=== PATIENT | male | born 1955 | race Caucasian/White ===

== ENCOUNTER → 2021-10-06 10:06 | Outpatient (BNVA) | payer MEDICARE, SELFPAY | PROVIDERS: PCP Family Medicine; Visit Provider Family Medicine | DX: I10 Essential (primary) hypertension (principal); Z13.220 Encounter for screening for lipoid disorders; Z13.6 Encounter for screening for cardiovascular disorders | CPT/HCPCS: 80053; 80061 ==

== ENCOUNTER 2021-10-12 17:55 | Observation (INO) | payer MEDICARE, SELFPAY ==
--- NOTE | 2021-10-12 18:05 | ECG_ITS ---
Test Date: 2021-10-12 Pat Name: Gautam Mcneil Department: Room: Gender: Male Family Caseworker: : 1955 Requested By: Chepe Fuentes Order Number: [id number] Karol MD: Avril Luna M.D. Measurements Intervals [place] Rate: 73 P: 42 IN: 184 QRS: 63 QRSD: 104 T: 78 QT: 441 QTc: 487 Interpretive Statements SINUS RHYTHM WITH OCCASIONAL SUPRAVENTRICULAR PREMATURE COMPLEXES MODERATE T-WAVE ABNORMALITY, CONSIDER ANTERIOR ISCHEMIA No previous ECG available for comparison Electronically Signed On 10-13-2021 18:59:17 CDT by Avril Luna M.D. [id number]
[2021-10-12 18:08] VITALS: BP 164/77; PULSE 75; RESP 16; TEMP 36.8; O2SAT 95; BMI 48.2
--- NOTE | 2021-10-12 18:48 | XRR_ITS ---
PROCEDURE INFORMATION: Exam: XR Chest Exam date and time: 10/12/2021 7:13 PM Age: 66 years old Clinical indication: Chest wall pain; Prior surgery; Surgery date: 6+ months; Additional info: Chest pain TECHNIQUE: Imaging protocol: Radiologic exam of the chest. Views: 1 view. COMPARISON: No relevant prior studies available. FINDINGS: Lungs: Unremarkable. No consolidation. Pleural spaces: Unremarkable. No pleural effusion. No pneumothorax. Heart/Mediastinum: Unremarkable. No cardiomegaly. Bones/joints: Sternotomy changes with a fractured wires. XR/XR chest 1V portable [id number] IMPRESSION: No acute finding.
--- NOTE | 2021-10-12 19:07 | ED_ITS ---
HPI - Chest Pain General: Chief Complaint: Chest Pain Stated Complaint: Chest Pain, Weakness Time Seen by Provider: 10/12/21 18:49 History of Present Illness: Mr. Mcneil is a 66-year-old gentleman with history of CABG x3, obesity, hypertension who presents to the emergency department due to generalized symptoms of chest pain. Reports started yesterday feeling generalized malaise and fatigue. Starting this morning he noticed some pressure in the middle of his chest which has essentially remained constant though varies in intensity since onset. This feels like a dull nagging pain. Mild associated shortness of breath but no other typical cardiac features. Denies frequent his tory of chest pain. Did take a home COVID test which was negative. No other specific changes in health, exacerbating, or alleviating factors identified. Onset (ago): day(s) Timing of current episode: constant Prior episodes: No Onset: during rest Pain location: substernal Pain radiation: none Severity: moderate Quality: aching and dull Relieving factors: nothing Exacerbating factors: nothing Associated symptoms: Reports dyspnea and other (generalized malaise) Review of Systems General: Reports: 10 or more systems reviewed and unremarkable except in HPI and below Resp: Reports: dyspnea PFSH ED PFSH: Medical History (Updated 10/26/21 @ 12:45 by Kaur Bay MD) CAD (coronary artery disease) of bypass graft S/P MS, stenting and bypass Chest pain COPD (chronic obstructive pulmonary disease) CVA (cerebral vascular accident) GERD (gastroesophageal reflux disease) History of stroke Hypertension Surgical History (Updated 10/26/21 @ 12:45 by Kaur Bay MD) History of hernia repair History of right knee surgery 1977 Hx of CABG 2014 Family History Father Cancer Mother Dementia Diabetes Social History Smoking and tobacco status: former smoker (quit smoking 2008) Physical Exam Const: COMMON NORMALS: alert GENERAL APPEARANCE: cooperative and well developed NUTRITIONAL APPEARANCE: obese HENMT: COMMON NORMALS: normocephalic and atraumatic HEAD & SCALP: normocephalic and atraumatic Eye: COMMON NORMALS: conjunctivae normal CONJUNCTIVA: Yes conjunctivae normal SCLERA: sclerae normal Neck/C-Spine: COMMON NORMALS: supple GENERAL: Yes trachea midline Resp: COMMON NORMALS: normal respiratory effort and clear to auscultation bilaterally EFFORT & INSPECTION: Yes able to speak in complete sentences AUSCULTATION: clear to auscultation bilaterally Cardio: COMMON NORMALS: regular rate and regular rhythm RATE: regular rate RHYTHM: regular rhythm GI: COMMON NORMALS: Soft to palpation PALPATION: Yes Soft to palpation and No Tenderness to palpation present (GI) Extremity: GENERAL: Yes normal exam except as noted and No edema Neuro: COMMON NORMALS: moves all extremities SENSORIUM/ORIENTATION: Yes alert and No Orientation impaired Psych: COMMON NORMALS: mental status grossly normal and Normal thought process present THOUGHT PROCESS: Normal thought process present Course ED course: - Patient was seen and evaluated by me at bedside - Patient placed on cardiac monitors, IV access obtained - Initial evaluation notable for somewhat ill appearance, exam as above - Labs and xrays personally interpreted by me. EKG shows sinus rhythm with arrhythmia and nonspecific ST segment abnormalities, no STEMI. -Aspirin, analgesia, GI cocktail given - Labs notable for leukocytosis, normal hemoglobin. Metabolic panel with perhaps mild evidence of dehydration. Delta troponin is negative. Viral studies negative. Urinalysis not concerning for urinary tract infection. - Imaging notable for no lobar consolidation or pneumothorax. - Upon serial reexamination after treatment the patient was not significantly improved - Based on patient history, evaluation, and testing as interpreted the most likely cause of the patient's condition is uncertain generalized symptoms and chest pain in a patient who is not low risk by heart score. - The results of ED evaluation were discussed with the patient including plan for admission due to requirement for level of care not available if discharged to prevent significant worsening/deterioration. - Admitting service was contacted and Dr Flores with the hospitalist service agreed to admit the patient - Patient was admitted without further deterioration or significant events. Note: Click bubbles or prepopulated stokes in note writing are used for assistance with data collection and billing and are inherently more limited than narrative and other text portions of this note. Please use narrative for additional clinical history and defer to narrative/free test for any case of contradictory information. If information appears in only free text or click bubble it should be considered present or absent as reported. Please contact note securities underwriter for clarifications of clinical information or contradictory information. MDM is a brief summary, contradictory or erroneous seeming information should be clarified and full note should be reviewed. Vital Signs: Vital signs: Vital Signs Temperature 97.8 F 10/13/21 15:52 Pulse Rate 85 10/13/21 15:52 Respiratory Rate 16 10/13/21 15:52 Blood Pressure 153/77 10/13/21 15:52 Pulse Oximetry 94 10/13/21 15:52 Oxygen Delivery Me thod 10/13/21 11:52 MDM - Chest Pain Medical Decision Making 66-year-old gentleman with significant cardiac history presenting with chest pain and generalized symptoms. Does not frequently get chest pain. No clear etiology of symptoms identified on ED evaluation. Admitted for further management given not low risk by heart score. Medical Records I reviewed the patient's medical records. Lab Data I reviewed the patient's lab results. : 10/13/21 01:16 10/13/21 01:16 Radiology Impressions Chest X-Ray 10/12/21 18:48 IMPRESSION: No acute finding. Head CT 10/12/21 23:36 IMPRESSION: No acute intracranial hemorrhage, mass effect, or midline shift. Laboratory Results WBC 13.9 10^3/uL (4.0-10.0) H 10/12/21 19:46 RBC 5.43 10^6/uL (4.1-5.3) H 10/12/21 19:46 Hgb 15.2 g/dL (11.7-16.6) 10/12/21 19:46 Hct 47.6 % (42.0-52.0) 10/12/21 19:46 MCV 87.7 fl (80-94) 10/12/21 19:46 MCH 28.0 pg (28.0-34.0) 10/12/21 19:46 MCHC 31.9 g/dL (30.0-36.0) 10/12/21 19:46 RDW 14.4 % (12.1-15.1) 10/12/21 19:46 Plt Count 285 10^3/cmm (130-400) 10/12/21 19:46 MPV 11.7 fL (7.4-10.4) H 10/12/21 19:46 Neut % (Auto) 61.5 % 10/12/21 19:46 Lymph % (Auto) 26.6 % 10/12/21 19:46 [place] % (Auto) 8.4 % 10/12/21 19:46 Eos % (Auto) 2.1 % 10/12/21 19:46 Baso % (Auto) 1.0 % 10/12/21 19:46 Neut # (Auto) 8.58 10^3/uL (1.8-7.7) H 10/12/21 19:46 Lymph # (Auto) 3.7 10^3/uL (0.8-4.8) 10/12/21 19:46 [place] # (Auto) 1.2 10^3/uL (0.2-0.9) H 10/12/21 19:46 Eos # (Auto) 0.3 10^3/uL (0.0-0.8) 10/12/21 19:46 Baso # (Auto) 0.1 10^3/uL (0.0-0.1) 10/12/21 19:46 Nucleated RBC % (auto) 0 % 10/12/21 19:46 Nucleated RBCs # 0.0 /100WBC 10/12/21 19:46 Sodium 134 mmol/L (136-145) L 10/12/21 19:46 Potassium 4.4 mmol/L (3.5-5.1) 10/12/21 19:46 Chloride 99 mmol/L (98-107) 10/12/21 19:46 Carbon Dioxide 25 mmol/L (22-29) 10/12/21 19:46 Anion Gap 14.4 (5-19) 10/12/21 19:46 BUN 11 mg/dL (8-23) 10/12/21 19:46 Creatinine 0.8 mg/dL (0.7-1.2) 10/12/21 19:46 GFR Calculation 96.7 mL/min (90-130) 10/12/21 19:46 Glucose 117 mg/dL (65-115) H 10/12/21 19:46 Calculated Osmolality 278 mOsm/kg (285-295) L 10/12/21 19:46 Calcium 9.1 mg/dL (8.5-10.5) 10/12/21 19:46 Total Bilirubin 0.3 mg/dL (0.15-1.2) 10/12/21 19:46 AST 21 U/L (0-40) 10/12/21 19:46 ALT 22 U/L (0-41) 10/12/21 19:46 Alkaline Phosphatase 75 IU/L (40-130) 10/12/21 19:46 Troponin T Baseline 6 ng/L (0-15) 10/12/21 19:46 Troponin T 120 Minute 6.00 ng/L (0-15) 10/12/21 21:59 Delta Troponin T 0 ABS# (0-10) 10/12/21 21:59 NT-Pro-B Natriuret Pep 35 pg/mL (0-125) 10/12/21 19:46 Total Protein 7.6 g/dL (6.6-8.7) 10/12/21 19:46 Albumin 4.2 g/dL (3.5-5.2) 10/12/21 19:46 Globulin 3.4 g/dL (1.3-4.6) 10/12/21 19:46 Lipase 21 U/L (13-60) 10/12/21 19:46 Urine Color Yellow (Yellow) 10/12/21 21:15 Urine Appearance Clear (CLEAR) 10/12/21 21:15 Urine pH 6 (5-7) 10/12/21 21:15 Ur Specific [place] 1.015 (1.005-1.030) 10/12/21 21:15 Urine Protein Neg (Negative) 10/12/21 21:15 Urine Glucose (UA) Norm (Normal) 10/12/21 21:15 Urine Ketones Negative (Negative) 10/12/21 21:15 Urine Blood Neg (Negative) 10/12/21 21:15 Urine Nitrate Negative (Negative) 10/12/21 21:15 Urine Bilirubin Neg (Negative) 10/12/21 21:15 Urine Urobilinogen Norm mg/dL (Negative) 10/12/21 21:15 Ur Leukocyte Esterase Negative (Negative) 10/12/21 21:15 Influenza Type A Ag Negative (Negative) 10/12/21 22:00 Influenza Type B Ag Negative (Negative) 10/12/21 22:00 SARS-CoV-2 Ag (Rapid) Negative (Negative) 10/12/21 22:00 Discharge Plan Discharge Patient Disposition: Placed in Observation Admit Provider: Brandon Flores Clinical Impression: Chest pain Discharge Diet: Cardiac Discharge Activity: Increase activity as tolerated Coding Level of Care Code ED Bookstore Manager for Chg Fwd Exam Comprehensive
[2021-10-12 19:44] VITALS: RESP 19
[2021-10-12] MEDS: morphine 4 mg/mL SDV 1 mL IVP ×2 (19:44→22:21)
[2021-10-12] MEDS: aspirin 81 mg Chew Tablet 324 MG PO (19:45)
[2021-10-12 19:52] LABS: Basophils # 0.1 10^3/uL (0.0-0.1); Eosinophils # 0.3 10^3/uL (0.0-0.8); Eosinophils % 2.1 %; Hematocrit 47.6 % (42.0-52.0); Hemoglobin 15.2 g/dL (11.7-16.6); Lymphocytes # 3.7 10^3/uL (0.8-4.8); Lymphocytes % 26.6 %; Mean Corpuscular HGB Conc 31.9 g/dL (30.0-36.0); Mean Corpuscular Volume 87.7 fl (80-94); Mean Platelet Volume 11.7 fL (7.4-10.4); Monocytes # 1.2 10^3/uL (0.2-0.9); Monocytes % 8.4 %; Neutrophils # 8.58 10^3/uL (1.8-7.7); Neutrophils % 61.5 %; Nucleated Red Blood Cells % 0 %; Platelet Count 285 10^3/cmm (130-400); Red Blood Count 5.43 10^6/uL (4.1-5.3); Red Cell Distribution Width 14.4 % (12.1-15.1); White Blood Count 13.9 10^3/uL (4.0-10.0)
[2021-10-12 20:18] LABS: Troponin(5th) Baseline 6 ng/L (0-15)
[2021-10-12] MEDS: methocarbamol 750 mg Tablet PO (20:22)
--- NOTE | 2021-10-12 20:23 | ECG_ITS ---
[facility] Test Date: 2021-10-12 Pat Name: Gautam Mcneil Department: Room: Gender: Male Cribber: : 1955 Requested By: Chepe Fuentes Order Number: [id number] Karol MD: Avril Luna M.D. Measurements Intervals [place] Rate: 67 P: 78 OR: 186 QRS: 67 QRSD: 112 T: 81 QT: 412 QTc: 435 Interpretive Statements SINUS RHYTHM WITH MARKED SINUS ARRHYTHMIA MODERATE INTRAVENTRICULAR CONDUCTION DELAY [110+ ms QRS DURATION] MODERATE T-WAVE ABNORMALITY, CONSIDER ANTERIOR ISCHEMIA [-0.1+ mV T-WAVE IN V3/V4] Compared to ECG 10/12/2021 18:05:22 Intraventricular conduction delay now present T-wave abnormality still present Possible ischemia still present Electronically Signed On 10-13-2021 18:42:32 CDT by Avril Luna M.D. [email or web address] [email or web address]/store/OM/[id number]
[2021-10-12 20:27] LABS: Alanine Aminotransferase 22 U/L (0-41); Albumin Level 4.2 g/dL (3.5-5.2); Alkaline Phosphatase 75 IU/L (40-130); Anion Gap 14.4 (5-19); Aspartate Amino Transferase 21 U/L (0-40); Blood Urea Nitrogen 11 mg/dL (8-23); Calcium 9.1 mg/dL (8.5-10.5); Carbon Dioxide 25 mmol/L (22-29); Chloride 99 mmol/L (98-107); Globulin 3.4 g/dL (1.3-4.6); Glomerular Filtration Rate 96.7 mL/min (90-130); Glucose 117 mg/dL (65-115); Lipase 21 U/L (13-60); NT Pro B Type Natriuretic Pept 35 pg/mL (0-125); Osmolality Calculated 278 mOsm/kg (285-295); Potassium 4.4 mmol/L (3.5-5.1); Sodium 134 mmol/L (136-145); Total Bilirubin 0.3 mg/dL (0.15-1.2); Total Protein 7.6 g/dL (6.6-8.7)
[2021-10-12 21:24] LABS: Add Urine Microscopic? NO; Charge for UA Resulting for Rev
[2021-10-12 21:29] LABS: Bilirubin Urine Neg (Negative); Blood Urine Neg (Negative); Glucose Urine UA Norm (Normal); Ketones Urine Negative (Negative); Leukocyte Esterase Urine Negative (Negative); Nitrate Urine Negative (Negative); Protein Urine Neg (Negative); Specific Gravity, Urine 1.015 (1.005-1.030); Urine Appearance Clear (CLEAR); Urine Color Yellow (Yellow); Urobilinogen Urine Norm (Negative); pH Urine 6 (5-7)
[2021-10-12 22:21] VITALS: RESP 20
[2021-10-12] MEDS: lidocaine 2% viscous 15 ML, aluminum-mag hydrox-simethicon 30 ML, sucralfate oral liq 1 GM PO (22:22)
[2021-10-12 22:44] LABS: Influenza A by IFA Negative (Negative); Influenza B by IFA Negative (Negative)
[2021-10-12 22:45] LABS: SARS Covid-2 Antigen Negative (Negative)
[2021-10-12 23:32] LABS: Troponin 5 2HR Delta 0 ABS# (0-10)
--- NOTE | 2021-10-12 23:35 | P.HP_ITS ---
Providers/Chief Complaint Primary Care Provider: Kaur Bay MD Chief Complaint: Chest Pain, Weakness History of Present Illness Gautam Mcneil is a 66 year old male with a past history of CAD status post stenting, history of CABG, hypertension, hyperlipidemia, history of CVA, who presents [facility] for chest pain. Patient tells me that today he started develop substernal chest pain, in the center of her chest, nonradiating, he also has been feeling weak, fatigue, no nausea, no vomiting, no diaphoresis. 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 Review of Systems Const: Reports: fatigue and malaise; Denies: fever(s) or chills Eyes: Denies: change in vision Resp: Denies: dyspnea, productive cough, non-productive cough or wheezing GI: Denies: abdominal pain, nausea or vomiting : Denies: dysuria Musc: Denies: back pain Neuro: Denies: headache(s), dizziness or vertigo Endo: Denies: polyuria or polydipsia Medications/Allergies Home Medications Medication Instructions Recorded Confirmed Last Taken Type albuterol sulfate 90 mcg/actuation 2 puff inhalation Q6H PRN 10/06/21 10/06/21 Unknown History aerosol inhaler (Ventolin HFA) aspirin 81 mg tablet,delayed 81 mg PO DAILY 10/06/21 10/06/21 Unknown History release (Adult Aspirin Regimen) fluconazole 150 mg tablet 150 mg PO Q3D 2 doses #2 tabs 10/06/21 10/06/21 Unknown Rx furosemide 20 mg tablet 20 mg PO DAILY 10/06/21 10/06/21 Unknown History lisinopril 20 mg tablet 20 mg PO DAILY 10/06/21 10/06/21 Unknown History metoprolol tartrate 100 mg tablet 100 mg PO DAILY 10/06/21 10/06/21 Unknown History nitroglycerin 0.4 mg sublingual 0.4 mg sublingual Q5M PRN 10/06/21 10/06/21 Unknown History tablet nystatin 100,000 unit/gram topical 1 applic topical BID #30 grams 10/06/21 10/06/21 Unknown Rx ointment nystatin 100,000 unit/gram topical 1 applic topical DAILY PRN after 10/06/21 10/06/21 Unknown Rx powder shower #60 grams pantoprazole 20 mg tablet,delayed 20 mg PO DAILY 10/06/21 10/06/21 Unknown History release potassium chloride 10 mEq 10 meq PO DAILY 10/06/21 10/06/21 Unknown History tablet,extended release rosuvastatin 20 mg tablet 20 mg PO DAILY 10/06/21 10/06/21 Unknown History tamsulosin 0.4 mg capsule 0.4 mg PO DAILY 10/06/21 10/06/21 Unknown History Allergies Allergy/AdvReac Type Severity Reaction Status Date / Time No Known Allergies Allergy Verified 10/06/21 09:20 PFSH Acute PFSH: Medical History COPD (chronic obstructive pulmonary disease) History of stroke Surgical History History of hernia repair History of right knee surgery 1977 Family History Father Cancer Mother Dementia Diabetes Social History Smoking and tobacco status: former smoker (Quit 2008 35 year history ) Vitals/I&O/Wt Last Vital Signs Temp 98.3 F 10/12/21 18:08 Pulse 75 10/12/21 18:08 Resp 20 H 10/12/21 22:21 BP 164/77 10/12/21 18:08 Pulse Ox 95 10/12/21 18:08 O2 Del Method 10/12/21 18:08 Weight last 48 hrs Weight 161.479 kg Physical Exam Const: COMMON NORMALS: no acute distress and patient oriented x3 HENMT: COMMON NORMALS: normocephalic HEAD & SCALP: normocephalic Eye: COMMON NORMALS: Equal, round and reactive pupils present and EOMs intact bilaterally Neck/C-Spine: COMMON NORMALS: no JVD Resp: COMMON NORMALS: normal respiratory effort, No retractions, No use of accessory muscles and clear to auscultation bilaterally AUSCULTATION: clear to auscultation bilaterally Cardio: COMMON NORMALS: no JVD, regular rate, regular rhythm, S1 normal heart sound present and S2 normal heart sound present RATE: regular rate RHYTHM: regular rhythm HEART SOUNDS: S1 normal heart sound present and S2 normal heart sound present GI: COMMON NORMALS: Normal to inspection, nondistended, normoactive bowel sounds present, Soft to palpation, non-tender, No hepatosplenomegaly present, no masses and no bruits PALPATION: Yes Soft to palpation and Yes No hepatosplenomegaly present Extremity: COMMON NORMALS: capillary refill normal, no clubbing, cyanosis or edema, no calf tenderness and no pedal edema Neuro: COMMON NORMALS: patient oriented x3, CN's II-XII intact bilaterally and no focal motor deficits Psych: COMMON NORMALS: mental status grossly normal Data : 10/12/21 19:46 10/12/21 19:46 A&P Assessment and plan (1) Chest pain: Status: Acute (2) CAD (coronary artery disease) of bypass graft: Status: Acute (3) Hypertension: Status: Acute Qualifiers: Hypertension type: primary hypertension Qualified Code(s): I10 - Essential (primary) hypertension Plan Chest pain -Serial EKGs, serial troponins, telemetry monitoring -Aspirin, statin, metoprolol, nitro as needed -N.p.o. midnight -Cardiac echo -Stress test tomorrow morning -TSH, hemoglobin A1c Had a syncopal episode, on the job site likely heatstroke -Has a history of CVA, will do CT of the head Attestations Medical Necessity Statement*: Patient requires hospitalization, outpatient observation, for chest pain Coding Level of Care Code Acute Blint[place] Roller for [facility] Diagnoses Chest pain R07.9 CAD (coronary artery disease) of bypass graft I25.810 Hypertension I10 Hypertension type: primary hypertension
--- NOTE | 2021-10-12 23:36 | CTR_ITS ---
PROCEDURE INFORMATION: Exam: CT Head Without Contrast Exam date and time: 10/13/2021 12:03 AM Age: 66 years old Clinical indication: Dizziness and other: General weakness; Patient HX: General weakness with mild dizziness. TECHNIQUE: Imaging protocol: Computed tomography of the head without contrast. Radiation optimization: All CT scans at this facility use at least one of these dose optimization techniques: automated exposure control; mA and/or kV adjustment per patient size (includes targeted exams where dose is matched to clinical indication); or iterative reconstruction. COMPARISON: No relevant prior studies available. RADIATION DOSE METRICS: Total DLP (mGy-cm): 1083.28 FINDINGS: Brain: No evidence of acute intracranial hemorrhage. Mild periventricular hypoattenuation is a nonspecific finding but likely the sequela of chronic small vessel ischemic disease. There are atherosclerotic calcifications of the carotid siphons and the V4 segment of the right vertebral artery. No midline shift. No mass effect. The basal cisterns are patent. Cerebral ventricles: Mild cerebral volume loss and ex vacuo dilation of the ventricles. Mild prominence of the subarachnoid spaces along the frontal lobes. Paranasal sinuses: Mild paranasal sinus disease. No fluid levels. Mastoid air cells: Visualized mastoid air cells are well aerated. Small amount of cerumen in the external auditory canals. Bones/joints: Unremarkable. No acute fracture. Soft tissues: Unremarkable. CT/CT head wo con* [id number] IMPRESSION: No acute intracranial hemorrhage, mass effect, or midline shift.
[2021-10-12 23:43] VITALS: BP 125/87; PULSE 79; RESP 15; O2SAT 94
[2021-10-13] VITALS (7 sets, daily range): BP systolic 120–153; BP diastolic 65–84; PULSE 73–87; RESP 16–22; TEMP 36.5–36.8; O2SAT 94–96
--- NOTE | 2021-10-13 | ECG_ITS ---
[facility] Test Date: 2021-10-13 Pat Name: Gautam Mcneil Department: Room: 262 Gender: Male Home Specialist: : 1955 Requested By: Brandon Flores Order Number: [id number] Karol MD: Avril Luna M.D. Interpretive Statements NAME OF STUDY: LEXISCAN SESTAMIBI STRESS TEST INDICATION: Chest Pain PROCEDURE: At the baseline, the blood pressure was 132/75 mmHg with a heart rate of 74 bpm. The electrocardiogram showed normal sinus rhythm, normal axis. Intraventricular conduction delay. T wave inversion in anterior leads, consider anterior ischemia. The Lexiscan was infused over a period of 20 seconds. A total of 0.4 milligrams of Lexiscan was infused. The stress phase was continued for a total of 5 minutes. Heart rate at the end of the stress phase was 87 bpm with a blood pressure of 120/67 mmHg. The EKG at the peak infusion revealed sinus rhythm with no significant ST-T wave changes. The study was terminated due to protocol completion. Sestamibi was injected 20 seconds after the Lexiscan infusion. Blood pressure at the end of the recovery phase was 119/64 mmHg with a heart rate of 84 beats per minute. CONCLUSION: 1. No significant EKG changes with the LexiScan infusion. 2. No LexiScan induced chest pain or cardiac arrhythmia. 3. Normal blood pressure and heart rate response. 4. Sestamibi/sestamibi perfusion scan pending; see separate report. Electronically Signed On 10-19-2021 17:39:55 CDT by Avril Luna M.D. [email or web address] [email or web address]/[id number]
--- NOTE | 2021-10-13 00:37 | NMCV_ITS ---
NM dottie perf SPECT r/s* [id number] Gautam Mcneil Age: 66 Gender: M : 1955 Exam Date: 10/13/2021 09:09 Ordering Phys: Brandon Flores MD Technologist: MATHEW Marcelo Exam Location: [facility] Indications: CHEST PAIN STRESS TEST Please [facility] for [facility] IMAGE PROTOCOL Rest/Stress 1 Lexiscan Day Radiopharmaceutical Dose (mCi) Administration Site Administered by Rest: Tc-99m 10.9 IV MATHEW Garrison Sestamibi Stress:Tc-99m 33.0 IV MATHEW Garrison Sestamibi Rest: 13-Oct-2021 60 Discovery 630 Stress: 13-Oct-2021 30 Discovery 630 0.4mg Lexiscan. Supine position only as patient was unable to lay prone. SPECT RESULTS Technical Quality: Excellent Raw Data Analysis: Normal Image Corrections: No attenuation or motion correction applied Summed Stress Score: 1 Summed Rest Score: 1 Summed Difference Score: 1 PERFUSION FINDINGS SPECT images demonstrate homogeneous tracer distribution throughout the myocardium. FUNCTIONAL RESULTS (calculated via Gated SPECT) Stress Image LV EF (%): 72 Stress EDV (mL):109 TID: 1.06 Stress ESV (mL):30 FUNCTIONAL FINDINGS: The left ventricle is normal in size. Transient Ischemia Dilatation of 1.1. There is normal left ventricular wall thickening. The left ventricular ejection fraction is normal with a value of 72%. Normal end diastolic and end systolic volumes. IMPRESSIONS 1. Myocardial perfusion imaging is normal. 2. Overall left ventricular systolic function is normal without regional wall motion abnormalities, LVEF=72%. 3. EKG portion of the study will be reported separately. Avril Luna MD (Electronically Signed) Final Date: 13 October 2021 14:21 S
[2021-10-13 01:46] LABS: Basophils # 0.1 10^3/uL (0.0-0.1); Basophils % 0.9 %; Eosinophils # 0.3 10^3/uL (0.0-0.8); Eosinophils % 2.4 %; Hematocrit 45.7 % (42.0-52.0); Hemoglobin 14.5 g/dL (11.7-16.6); Lymphocytes % 29.7 %; Mean Corpuscular HGB Conc 31.7 g/dL (30.0-36.0); Mean Corpuscular Volume 88.4 fl (80-94); Mean Platelet Volume 12.1 fL (7.4-10.4); Monocytes # 0.8 10^3/uL (0.2-0.9); Monocytes % 6.1 %; Neutrophils # 8.19 10^3/uL (1.8-7.7); Neutrophils % 60.5 %; Nucleated Red Blood Cells % 0 %; Platelet Count 268 10^3/cmm (130-400); Red Blood Count 5.17 10^6/uL (4.1-5.3); Red Cell Distribution Width 14.5 % (12.1-15.1); White Blood Count 13.5 10^3/uL (4.0-10.0)
[2021-10-13 02:04] LABS: Chol HDL Ratio 3.42 mg/dL (1.0-5.00); Cholesterol 147 mg/dL (0-200); HDL Cholesterol 43 mg/dL (60-100); LDL Cholesterol Calculated 84 mg/dL (50-129); LDL HDL Ratio 1.95 RATIO (0.00-3.22); Triglycerides 101 mg/dL (0-150)
[2021-10-13 02:12] LABS: Alanine Aminotransferase 20 U/L (0-41); Albumin Level 3.8 g/dL (3.5-5.2); Alkaline Phosphatase 77 IU/L (40-130); Anion Gap 16.1 (5-19); Aspartate Amino Transferase 19 U/L (0-40); Blood Urea Nitrogen 10 mg/dL (8-23); Calcium 9.1 mg/dL (8.5-10.5); Carbon Dioxide 23 mmol/L (22-29); Chloride 102 mmol/L (98-107); Globulin 3.1 g/dL (1.3-4.6); Glomerular Filtration Rate 112.8 mL/min (90-130); Glucose 174 mg/dL (65-115); Magnesium 1.9 mg/dL (1.7-2.3); Osmolality Calculated 287 mOsm/kg (285-295); Potassium 4.1 mmol/L (3.5-5.1); Sodium 137 mmol/L (136-145); Thyroid Stimulating Hormone 2.28 uIU/mL (0.27-4.20); Total Bilirubin 0.5 mg/dL (0.15-1.2); Total Protein 6.9 g/dL (6.6-8.7)
[2021-10-13 02:21] LABS: Troponin 5 6HR Delta 0 ng/L (0-12)
[2021-10-13] MEDS: enoxaparin 40 mg/0.4 mL Syringe SUBCUT (02:27)
[2021-10-13 02:45] LABS: Estmated Average Glucose 143; Hemoglobin A1C 6.6 % (4.0-6.0)
[2021-10-13] MEDS: CLONazepam 0.5 mg Tablet 0.25 MG PO (06:21)
--- NOTE | 2021-10-13 07:15 | PC.NURSE ---
Patient was brought back to room by [facility] staff. Staff member stated We weren't even able to start the test. He is claustrophobic. Dr. Lomax notified. Xanax 0.5 mg ordered. Patient states that isn't going to work, you're going to have to knock me out. Dr. Lomax notified. Ordered to give 25 of Seroquel instead of Xanax.
[2021-10-13] MEDS: quetiapine 25 mg Tablet PO (07:18)
[2021-10-13] MEDS: ALPRAZolam 0.5 mg Tablet PO (08:36)
[2021-10-13] MEDS: ondansetron 2 mg/ML SDV 2 mL 4 MG IVP (08:44)
[2021-10-13] MEDS: regadenoson 0.4 Mg/5 ml Syringe IVP (09:49)
[2021-10-13] MEDS: perflutren protein-a microsphr 0.22 mg/mL SDV 3 mL IV (11:17)
[2021-10-13] MEDS: pantoprazole DR 40 mg Tablet PO (11:32)
[2021-10-13] MEDS: atorvastatin 40 mg Tablet 80 MG PO (11:32)
[2021-10-13] MEDS: tamsulosin 0.4 mg Capsule PO (11:32)
[2021-10-13] MEDS: lisinopril 20 mg Tablet PO (11:32)
[2021-10-13] MEDS: aspirin 81 mg EC Tablet PO (11:33)
[2021-10-13] MEDS: pneumococcal (23 valent) SDV 0.5 mL IM (11:35)
--- NOTE | 2021-10-13 11:49 | P.DS_ITS ---
Discharge Providers Date of Admission: 10/13/21 00:12 Date of Discharge: October 13, 2021 Attending Provider at Admission: Brandon Flores MD Attending Provider at Discharge: Manuelito Lomax MD Primary Care Provider: Kaur Bay MD Diagnoses at Discharge Discharge Diagnosis (1) Chest pain: Status: Acute (2) CAD (coronary artery disease) of bypass graft: Status: Acute Permanent problem details: S/P [place], stenting and bypass (3) Hypertension: Status: Acute Qualifiers: Hypertension type: primary hypertension Qualified Code(s): I10 - Essential (primary) hypertension Reason for Visit Reason for Visit: Chest Pain, Weakness Hospital Course Hospital Course 66-year-old male with history of established coronary disease presented with left-sided chest pain. I evaluated him during his stress test. No active complaints or shortness of breath. Patient is claustrophobic received anxiolytics. 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 He has to establish cardiology care at [facility]. He has a referral to see Dr. Luna outpatient. His head CT was requested by the admitting physician because of his recent syncopal event after he was working outside in the heat. No acute intracranial hemorrhage mass-effect or midline shift. Physical Exam Narrative: Morbid obese male No active chest pain or shortness of breath No signs of edema Abdomen distended known tender Awake and alert Nonfocal neuro exam Discharge Data Studies Completed and Pending Completed Studies During Hospitalization Category Date Time Status CT head wo con* [id number] Stat Cat Scan 10/12/21 23:36 Completed Sestamibi Stress Test Request Routine Exams 10/13/21 00:37 Draft XR chest 1V portable [id number] Stat Exams 10/12/21 18:48 Completed Pending at discharge Category Date Time Status Complete Blood Count w/Auto AM LABS Lab 10/14/21 04:00 Ordered Complete Blood Count w/Auto AM LABS Lab 10/15/21 04:00 Ordered Comprehensive Metabolic Panel AM LABS Lab 10/14/21 04:00 Ordered Comprehensive Metabolic Panel AM LABS Lab 10/15/21 04:00 Ordered Magnesium AM LABS Lab 10/14/21 04:00 Ordered Magnesium AM LABS Lab 10/15/21 04:00 Ordered Phosphorus AM LABS Lab 10/14/21 04:00 Ordered Phosphorus AM LABS Lab 10/15/21 04:00 Ordered NM dottie perf SPECT r/s* [id number] Routine Nuc Med 10/13/21 00:37 Ordered CV. echo wo/w contrast [id number] Stat Ultrasound 10/13/21 23:34 Taken Radiology Impressions Chest X-Ray 10/12/21 18:48 IMPRESSION: No acute finding. Head CT 10/12/21 23:36 IMPRESSION: No acute intracranial hemorrhage, mass effect, or midline shift. Laboratory Results WBC 13.5 10^3/uL (4.0-10.0) H 10/13/21 01:16 RBC 5.17 10^6/uL (4.1-5.3) 10/13/21 01:16 Hgb 14.5 g/dL (11.7-16.6) 10/13/21 01:16 Hct 45.7 % (42.0-52.0) 10/13/21 01:16 MCV 88.4 fl (80-94) 10/13/21 01:16 MCH 28.0 pg (28.0-34.0) 10/13/21 01:16 MCHC 31.7 g/dL (30.0-36.0) 10/13/21 01:16 RDW 14.5 % (12.1-15.1) 10/13/21 01:16 Plt Count 268 10^3/cmm (130-400) 10/13/21 01:16 MPV 12.1 fL (7.4-10.4) H 10/13/21 01:16 Neut % (Auto) 60.5 % 10/13/21 01:16 Lymph % (Auto) 29.7 % 10/13/21 01:16 [place] % (Auto) 6.1 % 10/13/21 01:16 Eos % (Auto) 2.4 % 10/13/21 01:16 Baso % (Auto) 0.9 % 10/13/21 01:16 Neut # (Auto) 8.19 10^3/uL (1.8-7.7) H 10/13/21 01:16 Lymph # (Auto) 4.0 10^3/uL (0.8-4.8) 10/13/21 01:16 [place] # (Auto) 0.8 10^3/uL (0.2-0.9) 10/13/21 01:16 Eos # (Auto) 0.3 10^3/uL (0.0-0.8) 10/13/21 01:16 Baso # (Auto) 0.1 10^3/uL (0.0-0.1) 10/13/21 01:16 Nucleated RBC % (auto) 0 % 10/13/21 01:16 Nucleated RBCs # 0.0 /100WBC 10/13/21 01:16 Sodium 137 mmol/L (136-145) 10/13/21 01:16 Potassium 4.1 mmol/L (3.5-5.1) 10/13/21 01:16 Chloride 102 mmol/L (98-107) 10/13/21 01:16 Carbon Dioxide 23 mmol/L (22-29) 10/13/21 01:16 Anion Gap 16.1 (5-19) 10/13/21 01:16 BUN 10 mg/dL (8-23) 10/13/21 01:16 Creatinine 0.7 mg/dL (0.7-1.2) 10/13/21 01:16 GFR Calculation 112.8 mL/min (90-130) 10/13/21 01:16 Glucose 174 mg/dL (65-115) H 10/13/21 01:16 Estimat Average Glucose 143 10/13/21 01:16 Hemoglobin A1c 6.6 % (4.0-6.0) H 10/13/21 01:16 Calculated Osmolality 287 mOsm/kg (285-295) 10/13/21 01:16 Calcium 9.1 mg/dL (8.5-10.5) 10/13/21 01:16 Phosphorus 3.0 mg/dL (2.5-4.5) 10/13/21 01:16 Magnesium 1.9 mg/dL (1.7-2.3) 10/13/21 01:16 Total Bilirubin 0.5 mg/dL (0.15-1.2) 10/13/21 01:16 AST 19 U/L (0-40) 10/13/21 01:16 ALT 20 U/L (0-41) 10/13/21 01:16 Alkaline Phosphatase 77 IU/L (40-130) 10/13/21 01:16 Troponin T Baseline 6 ng/L (0-15) 10/12/21 19:46 Troponin T 120 Minute 6.00 ng/L (0-15) 10/12/21 21:59 Delta Troponin T 0 ABS# (0-10) 10/12/21 21:59 Troponin T Hi Sens 6Hr 6.00 ng/L (0-15) 10/13/21 01:16 Troponin T Hi Sens 6Hr Delta 0 ng/L (0-12) 10/13/21 01:16 NT-Pro-B Natriuret Pep 35 pg/mL (0-125) 10/12/21 19:46 Total Protein 6.9 g/dL (6.6-8.7) 10/13/21 01:16 Albumin 3.8 g/dL (3.5-5.2) 10/13/21 01:16 Globulin 3.1 g/dL (1.3-4.6) 10/13/21 01:16 Triglycerides 101 mg/dL (0-150) 10/13/21 01:16 Cholesterol 147 mg/dL (0-200) 10/13/21 01:16 LDL Cholesterol, Calc 84 mg/dL (50-129) 10/13/21 01:16 HDL Cholesterol 43 mg/dL (60-100) L 10/13/21 01:16 LDL/HDL Ratio 1.95 RATIO (0.00-3.22) 10/13/21 01:16 Cholesterol/HDL Ratio 3.42 mg/dL (1.0-5.00) 10/13/21 01:16 Lipase 21 U/L (13-60) 10/12/21 19:46 TSH 2.28 uIU/mL (0.27-4.20) 10/13/21 01:16 Urine Color Yellow (Yellow) 10/12/21 21:15 Urine Appearance Clear (CLEAR) 10/12/21 21:15 Urine pH 6 (5-7) 10/12/21 21:15 Ur Specific [place] 1.015 (1.005-1.030) 10/12/21 21:15 Urine Protein Neg (Negative) 10/12/21 21:15 Urine Glucose (UA) Norm (Normal) 10/12/21 21:15 Urine Ketones Negative (Negative) 10/12/21 21:15 Urine Blood Neg (Negative) 10/12/21 21:15 Urine Nitrate Negative (Negative) 10/12/21 21:15 Urine Bilirubin Neg (Negative) 10/12/21 21:15 Urine Urobilinogen Norm mg/dL (Negative) 10/12/21 21:15 Ur Leukocyte Esterase Negative (Negative) 10/12/21 21:15 Influenza Type A Ag Negative (Negative) 10/12/21 22:00 Influenza Type B Ag Negative (Negative) 10/12/21 22:00 SARS-CoV-2 Ag (Rapid) Negative (Negative) 10/12/21 22:00 Vitals Last Vital Signs Temp 97.7 F 10/13/21 08:00 Pulse 87 10/13/21 10:42 Resp 18 10/13/21 08:00 BP 120/67 10/13/21 10:42 Pulse Ox 94 10/13/21 08:00 O2 Del Method 10/13/21 08:00 Discharge Plan Discharge Patient Disposition: Home Condition: Stable Prescriptions: New isosorbide mononitrate 10 mg tablet 5 mg PO BID Qty: 60 0RF Rx Instructions: give doses 7 hrs apart Continued furosemide 20 mg tablet 20 mg PO DAILY tamsulosin 0.4 mg capsule 0.4 mg PO DAILY metoprolol tartrate 100 mg tablet 100 mg PO BID rosuvastatin 20 mg tablet 20 mg PO BEDTIME potassium chloride 10 mEq tablet extended release 10 meq PO BEDTIME nitroglycerin 0.4 mg tablet, sublingual 0.4 mg sublingual Q5M PRN (Reason: Chest Pain) Rx Instructions: do not exceed 3 doses per episode lisinopril 20 mg tablet 20 mg PO DAILY pantoprazole 20 mg tablet,delayed release (DR/EC) 20 mg PO BEDTIME aspirin [Adult Aspirin Regimen] 81 mg tablet,delayed release (DR/EC) 81 mg PO DAILY albuterol sulfate [Ventolin HFA] 90 mcg/actuation HFA aerosol inhaler 2 puff inhalation Q6H PRN (Reason: Shortness Of Breath) fluconazole 150 mg tablet 150 mg PO Q3D 0 Days Qty: 2 1RF Rx Instructions: may repeat second dose 72 hrs after first dose if symptoms persist nystatin 100,000 unit/gram ointment 1 applic topical BID Qty: 30 1RF Rx Instructions: to active rash in groin area nystatin 100,000 unit/gram powder 1 applic topical DAILY PRN (Reason: after shower) Qty: 60 1RF Rx Instructions: dry skin after shower and apply to skin folds for prevention Discharge Orders: Discharge Order (Routine); Ordered 10/13/21 Ordered By: Manuelito Lomax Referrals: Jeff Vizcaino MD [Physician] - 10/25/21 11:00 am (Please call [phone] if you have any questions or concerns. Thank you.) Kaur Bay MD [Primary Care Provider] - 10/26/21 11:00 am (Please call [phone] if you have any questions or concerns. Thank you.) Discharge Diet: Cardiac Discharge Activity: Increase activity as tolerated Patient Instructions: Isosorbide Mononitrate (By mouth) (Imdur, Imdur ER, Ismo), Angina (DC), Chest Pain Stoplight, Opioid Safety Discharge Attestations Time Spent in Discharge Care*: less than 30 min Quality Metrics Clinical Quality Measures [ No reported AMI, CVA or VTE this stay] Coding Level of Care Code Acute Chg FW DC note Diagnoses Chest pain R07.9 CAD (coronary artery disease) of bypass graft I25.810 Hypertension I10 Hypertension type: primary hypertension
--- NOTE | 2021-10-13 23:34 | USCV_ITS ---
Gautam Mcneil Age: 66 Gender: M : 1955 Exam Date: 10/13/2021 10:03 Ordering Phys: Brandon Flores MD Technologist: Hermann Millard [place] [facility]: sob BP: 126 / 65 HR: 71 Rhythm: Sinus Technical Quality: Adequate MEASUREMENTS (Male / Female) Normal Values 2D ECHO LV Diastolic Diameter PLAX 4.5 cm 4.2 - 5.9 / 3.9 - 5.3 cm LV Systolic Diameter PLAX 3.0 cm IVS Diastolic Thickness 1.3 cm 0.6 - 1.0 / 0.6 - 0.9 cm IVS Systolic Thickness 1.7 cm LVPW Diastolic Thickness 1.1 cm 0.6 - 1.0 / 0.6 - 0.9 cm LVPW Systolic Thickness 1.3 cm LVOT Diameter 2.0 cm LV Ejection Fraction 2D Teich 63.2 % LV Ejection Fraction MOD 2C 64.4 % LV Ejection Fraction 2C AL 63.3 % LA Diameter 3.6 cm LA Width 3.4 cm LA Height 4.3 cm RA Width 3.6 cm RA Height 4.4 cm Aorta at Sinotubular Diameter 2.9 cm IVC Diameter 2.0 cm M-MODE Aortic Annulus Diameter 2.9 cm LA Ao Ratio MM 1.1 MV E Point Septal Separation 0.4 cm DOPPLER AV Peak Velocity 170.3 cm/s LVOT Peak Velocity 108.0 cm/s AV Area Cont Eq vti 1.9 cm squared AV Area Cont Eq pk 2.1 cm squared MV Peak Velocity 94.0 cm/s MV Area PHT 3.9 cm squared Mitral E to A Ratio 0.8 MV E' Velocity 41.5 cm/s Mitral E to MV E' Ratio 7.9 Mitral E to LV E' Lateral Ratio 6.3 Mitral E to LV E' Septal Ratio 10.7 TR Peak Velocity 196.8 cm/s TR Peak Gradient 15.5 mmHg TR Mean Velocity 165.9 cm/s TR Mean Gradient 11.0 mmHg TR Velocity Time Integral 46.3 cm Right Atrial Pressure 3.0 mmHg Pulmonary Artery Systolic Pressu 18.5 mmHg RV Acceleration Time 0.1 s RV Ejection Time 0.3 s RV AcT/ET 0.3 FINDINGS Left Ventricle Normal left ventricular size and systolic function, EF 63 %. No regional wall motion abnormalities. Right Ventricle Normal right ventricular size and systolic function. Right Atrium The right atrium is normal in size. Left Atrium The left atrium is normal in size. Mitral Valve No gross abnormalities noted Aortic Valve Thickened aortic valve. Tricuspid Valve Trace tricuspid valve regurgitation. Pulmonic Valve Pulmonic valve not well visualized. Pericardium No pericardial effusion. Aorta Normal aortic annulus size. IVC Normal inferior vena cava. CONCLUSIONS Normal left ventricular size and systolic function, EF 63 %. No regional wall motion abnormalities. Trace tricuspid valve regurgitation. Thickened aortic valve. There is no pericardial effusion. There are no intracardiac masses. Estimated pulmonary artery peak systolic pressure within normal limits Technically difficult study. Echo contrast was used for LV function analysis and endocardial delineation Dr Jeff Vizcaino MD FAC (Electronically Signed) Final Date: 13 October 2021 22:59 S
== END 2021-10-13 16:12 | disposition home or self-care (01) ==
LOC: ER 23:15 → MEDSURG 10-13 00:12
PROVIDERS: Admitting Provider Family Medicine; Emergency Provider Emergency Medicine; PCP Family Medicine; Visit Provider Internal Medicine
DX: R07.9 Chest pain, unspecified (principal); I25.810 Atherosclerosis of coronary artery bypass graft(s) without angina pectoris; Z95.5 Presence of coronary angioplasty implant and graft; Z95.1 Presence of aortocoronary bypass graft; I10 Essential (primary) hypertension; Z86.73 Personal history of transient ischemic attack (TIA), and cerebral infarction without residual deficits; J44.9 Chronic obstructive pulmonary disease, unspecified; Z87.891 Personal history of nicotine dependence; E66.9 Obesity, unspecified; Z68.42 Body mass index [BMI] 45.0-49.9, adult; R55 Syncope and collapse
CPT/HCPCS: 36415; 70450; 71045; 78452; 80053; 80061; 81003; 83036; 83690; 83735; 83880; 84100; 84443; 84484; 85025; 87426; 87804; 90471; 90732; 93005; 93017; 96372; 96374; 96375; 96376; 99285; A9500; C8929; G0378; J1650; J2270; J2405; J2785; Q9956

== ENCOUNTER → 2021-10-25 10:23 | Outpatient (BNVA) | payer MEDICARE, SELFPAY | PROVIDERS: PCP Family Medicine; Visit Provider Internal Medicine Cardiovascular Disease | DX: R55 Syncope and collapse (principal); I10 Essential (primary) hypertension; I25.118 Atherosclerotic heart disease of native coronary artery with other forms of angina pectoris; E78.5 Hyperlipidemia, unspecified; Z86.73 Personal history of transient ischemic attack (TIA), and cerebral infarction without residual deficits; G47.33 Obstructive sleep apnea (adult) (pediatric); I71.4 Abdominal aortic aneurysm, without rupture; Z87.891 Personal history of nicotine dependence | CPT/HCPCS: 99205 ==

== ENCOUNTER → 2021-11-01 13:50 | Outpatient (BNVA) | payer MEDICARE, SELFPAY | PROVIDERS: PCP Family Medicine; Visit Provider Internal Medicine Pulmonary Disease | DX: G47.33 Obstructive sleep apnea (adult) (pediatric) (principal); J44.9 Chronic obstructive pulmonary disease, unspecified; Z87.891 Personal history of nicotine dependence; Z12.2 Encounter for screening for malignant neoplasm of respiratory organs; Z71.6 Tobacco abuse counseling; E66.01 Morbid (severe) obesity due to excess calories; Z68.43 Body mass index [BMI] 50.0-59.9, adult; I25.10 Atherosclerotic heart disease of native coronary artery without angina pectoris; Z95.5 Presence of coronary angioplasty implant and graft; Z95.1 Presence of aortocoronary bypass graft | CPT/HCPCS: 99204 ==

== ENCOUNTER → 2021-12-27 10:39 | Outpatient (BNVA) | payer MEDICARE, SELFPAY | PROVIDERS: PCP Family Medicine; Visit Provider Nurse Practitioner Family | DX: I25.118 Atherosclerotic heart disease of native coronary artery with other forms of angina pectoris (principal); Z87.891 Personal history of nicotine dependence; I10 Essential (primary) hypertension; Z95.1 Presence of aortocoronary bypass graft | CPT/HCPCS: 80048; 99213; 99214 ==

== ENCOUNTER 2021-12-28 20:00 | Outpatient (CLI) | payer MEDICARE, SELFPAY | END 2021-12-28 20:01 | disposition home or self-care (01) | LOC: SLEEP 12-29 06:30 | PROVIDERS: PCP Family Medicine; Visit Provider Internal Medicine Pulmonary Disease | DX: G47.33 Obstructive sleep apnea (adult) (pediatric) (principal) | CPT/HCPCS: 95811 ==

== ENCOUNTER → 2021-12-29 09:11 | Outpatient (BNVA) | payer MEDICARE, SELFPAY | PROVIDERS: PCP Family Medicine; Visit Provider Internal Medicine Pulmonary Disease | DX: G47.33 Obstructive sleep apnea (adult) (pediatric) (principal); J44.9 Chronic obstructive pulmonary disease, unspecified; Z87.891 Personal history of nicotine dependence; Z12.2 Encounter for screening for malignant neoplasm of respiratory organs; E66.01 Morbid (severe) obesity due to excess calories; Z68.42 Body mass index [BMI] 45.0-49.9, adult | CPT/HCPCS: 99214 ==

== ENCOUNTER 2022-02-01 09:32 | Outpatient (CLI) | payer MEDICARE, SELFPAY ==
--- NOTE | 2022-02-01 09:37 | CT_ITS ---
WS: [id number] LDCT LUNG CANCER SCREENING TECHNIQUE: Noncontrast CT of the chest with coronal and sagittal reformatted images. CLINICAL INFORMATION: lung scre COMPARISON: None. DLP: 78.09 mGy.cm DIvol: Mean CTDIvol: 1.60 (mGy) All CT scans at [facility] use at least one of these dose optimization techniques: automat ed exposure control; mA and/or kV adjustment per patient size (includes targeted exams where dose is matched to clinical indication); or iterative reconstruction. FINDINGS: Some images degraded by motion and body habitus A few tiny subpleural nodules bilaterally measuring up to 3 mm. A noncalcified LEFT lower lobe measur ing 4 mm. Prior sternotomy. Aortic calcification. Prior CABG. No mediastinal or hilar lymphadenopathy. Adrenal glands are normal. No axillary lymphadenopathy. Hypertrophic changes thoracic spine. CT/CT lung screening [id number] IMPRESSION: LUNG-RADS: 2-Benign Appearance or Behavior FOLLOW UP: 12 Month: Continue annual screening with LDCT
== END 2022-02-01 09:33 | disposition home or self-care (01) ==
LOC: RAD 09:33
PROVIDERS: PCP Family Medicine; Visit Provider Internal Medicine Pulmonary Disease
DX: Z12.2 Encounter for screening for malignant neoplasm of respiratory organs (principal); Z87.891 Personal history of nicotine dependence
CPT/HCPCS: 71271

== ENCOUNTER → 2022-02-07 09:20 | Outpatient (BNVA) | payer MEDICARE, SELFPAY | PROVIDERS: PCP Family Medicine; Visit Provider Family Medicine | DX: M17.12 Unilateral primary osteoarthritis, left knee (principal); M17.11 Unilateral primary osteoarthritis, right knee | CPT/HCPCS: 73562 ==

== ENCOUNTER 2022-02-24 14:32 | Outpatient (CLI) | payer MEDICARE, SELFPAY ==
--- NOTE | 2022-02-24 15:00 | CT_ITS ---
WS: [id number] CT ANGIOGRAPHY ABDOMEN HISTORY: AAA TECHNIQUE: CT angiogram is performed during IV injection. Reformation images reviewed. All CT scans a [facility] use at least one of these dose optimization techniques: automated exposure contro l; mA and/or kV adjustment per patient size (includes targeted exams where dose is matched to clinica l indication); or iterative reconstruction. CONTRAST: Omnipaque 350; 95 mL IV. DLP: 737.39 mGy.cm COMPARISON: None available. Moderate atherosclerotic plaque throughout the aorta. Very minimal ectasia and dilatation of aorta. M aximum diameter is 3.2 cm. No dissection. Mild stenosis involving the origin of the celiac axis. Supe rior mesenteric artery is normal. Focal calcification at the origins of the renal arteries with steno sis less than 50%. Mild bilateral renal atrophy. Bilateral mild cortical thinning. Cyst lower pole LEFT kidney measures 3.4 cm. Lung bases are clear. Heart size is normal. No hiatal hernia. Negative liver and gallbladder and sple en. Normal pancreas and adrenal glands. No adenopathy or ascites. Small umbilical hernia contains fat only. CT/CT angio abdomen [id number] IMPRESSION: 1. Small abdominal aortic aneurysm and mild aortic ectasia. Maximum diameter 3 .2 cm. 2. Atherosclerotic plaque throughout the aorta. Mild stenosis involving the ce liac axis and renal arteries. 3. Bilateral mild renal cortical thinning.
[2022-02-24] MEDS: iohexol 350 mg/mL 500 mL Btl (per mL) IV (15:12)
== END 2022-02-24 14:33 | disposition home or self-care (01) ==
PROVIDERS: PCP Family Medicine; Visit Provider Internal Medicine Cardiovascular Disease
DX: I71.40 Abdominal aortic aneurysm, without rupture, unspecified (principal); I77.4 Celiac artery compression syndrome; I70.1 Atherosclerosis of renal artery
CPT/HCPCS: 36415; 74175; 80048; 83880; 99214; Q9967

== ENCOUNTER → 2022-04-06 08:56 | Outpatient (BNVA) | payer MEDICARE, SELFPAY | PROVIDERS: PCP Family Medicine; Visit Provider Family Medicine | DX: B37.2 Candidiasis of skin and nail (principal); N40.0 Benign prostatic hyperplasia without lower urinary tract symptoms; E11.9 Type 2 diabetes mellitus without complications; G47.33 Obstructive sleep apnea (adult) (pediatric); Z12.5 Encounter for screening for malignant neoplasm of prostate; N40.1 Benign prostatic hyperplasia with lower urinary tract symptoms; I10 Essential (primary) hypertension; I25.118 Atherosclerotic heart disease of native coronary artery with other forms of angina pectoris; I71.40 Abdominal aortic aneurysm, without rupture, unspecified; R35.1 Nocturia; M17.11 Unilateral primary osteoarthritis, right knee; M17.12 Unilateral primary osteoarthritis, left knee; Z68.42 Body mass index [BMI] 45.0-49.9, adult | CPT/HCPCS: 83036; 84153 ==

== ENCOUNTER 2022-04-07 10:56 | Emergency (ER) | payer MEDICARE, SELFPAY ==
[2022-04-07] VITALS (9 sets, daily range): BP systolic 86–107; BP diastolic 43–56; PULSE 60–67; RESP 16–18; TEMP 36.3; O2SAT 91–96; BMI 48.8
--- NOTE | 2022-04-07 11:21 | ECG_ITS ---
[facility] Test Date: 2022-04-07 Pat Name: Gautam Mcneil Department: Room: Gender: Male Director Physical: : 1955 Requested By: Damon Shirley Order Number: [id number] Karol MD: Jamari Moon M.D. Measurements Intervals [place] Rate: 56 P: 69 CA: 207 QRS: 67 QRSD: 108 T: 87 QT: 428 QTc: 416 Interpretive Statements SINUS BRADYCARDIA WITH SINUS ARRHYTHMIA MINIMAL ST DEPRESSION [0.025+ mV ST DEPRESSION] Compared to ECG 10/12/2021 20:23:57 ST (T wave) deviation now present Sinus rhythm no longer present Intraventricular conduction delay no longer present T-wave abnormality no longer present Possible ischemia no longer present Electronically Signed On 04-07-2022 13:06:52 [employer]OT[employer] by Jamari Moon M.D. [id number]
--- NOTE | 2022-04-07 11:55 | W.ED.WEAKNES ---
HPI - Weakness General: Chief complaint: Weakness Stated complaint: Dizziness, Weakness Time Seen by Provider: 04/07/22 11:41 History of Present Illness: This 66-year-old male with a history of hypertension presents to the ER for evaluation of dizziness and weakness that started few days ago. The episode of dizziness got worse today, prompting him to come in for evaluation. Patient recalls how few weeks ago, his blood pressure medications were adjusted because he was hypertensive with systolic blood pressures in the 170s. His lisinopril dose was doubled from 20 mg to 40 mg daily and another blood pressure medication, which he cannot remember the name, was added. Here in the ER, his systolic blood pressure is soft and is in the 100s. He denies fever, vomiting, chest pain or any other pertinent systemic symptoms. Otherwise, he is in no acute distress. Associated symptoms: Denies chest pain, chills, dysuria, easy bruising or headache(s) Review of Systems General: Reports: Other (Weakness) Const: Denies: chills, body aches or change in appetite Eyes: Denies: change in vision or eye discharge ENMT: Denies: throat pain, dental pain or nasal discharge Card: Denies: chest pain or lightheadedness : Denies: dysuria Musc: Denies: neck pain or back pain Neuro: Reports: dizziness; Denies: headache(s) or weakness in extremities Psych: Denies: depression Rafal/Lymph: Denies: easy bruising All/Imm: Denies: urticaria, tongue swelling or facial swelling PFSH ED PFSH: Medical History CAD (coronary artery disease) of bypass graft S/P AR, stenting and bypass Chest pain COPD (chronic obstructive pulmonary disease) CVA (cerebral vascular accident) GERD (gastroesophageal reflux disease) History of stroke Hypertension Surgical History History of hernia repair History of right knee surgery 1977 Hx of CABG 2013 Family History Father Cancer Mother Dementia Diabetes Social History Smoking and tobacco status: former smoker Quit status (tobacco): has quit using tobacco Year quit tobacco: 2008 Former quit date comment: 1ppd x 35 years Physical Exam Const: COMMON NORMALS: no acute distress, patient oriented x3, no limitations and alert HENMT: COMMON NORMALS: normocephalic HEAD & SCALP: normocephalic Eye: COMMON NORMALS: EOMs intact bilaterally Neck/C-Spine: COMMON NORMALS: full ROM and supple Chest: COMMONS NORMALS: normal inspection of the chest Resp: COMMON NORMALS: normal respiratory effort, No retractions, No use of accessory muscles and clear to auscultation bilaterally AUSCULTATION: clear to auscultation bilaterally Cardio: COMMON NORMALS: regular rate, regular rhythm and No murmurs present (Cardio) RATE: regular rate RHYTHM: regular rhythm GI: COMMON NORMALS: Normal to inspection, nondistended, normoactive bowel sounds present and non-tender : COMMON NORMALS: Yes no CVA tenderness BLADDER/KIDNEY EXAM: Yes no CVA tenderness Back/Pelvis: COMMON NORMALS: no CVA tenderness and no thoracic nor lumbar tenderness Extremity: GENERAL: Yes normal exam except as noted Neuro: COMMON NORMALS: patient oriented x3 and no focal motor deficits SENSORIUM/ORIENTATION: Yes alert Psych: COMMON NORMALS: mental status grossly normal and cooperative Course Vital Signs: Vital signs: Vital Signs Temperature 97.3 F L 04/07/22 11:12 Pulse Rate 60 04/07/22 12:57 Respiratory Rate 16 04/07/22 11:12 Blood Pressure 89/46 04/07/22 12:57 Pulse Oximetry 92 04/07/22 12:20 Oxygen Delivery Me thod 04/07/22 12:10 MDM - Weakness Medical Decision Making Medical decision making: Throughout patient's stay in the ER, his blood pressures were soft with systolics mainly in the upper 100s. IV fluids administered. Completed blood tests and chest x-ray are unremarkable. I believe that the recent changes to his blood pressure medications, (doubling of lisinopril and introduction of amlodipine) is responsible for the drop of his systolic blood pressure from the 170s to the 100s and leading to the use intermittent episodes of dizziness. Patient was advised to stop the amlodipine and to closely monitor his blood pressures. Should his symptoms persist or he develops any new concerning symptoms, he should return to the ER immediately. Patient verbalized understanding and agreed with this plan. Lab Data 04/07/22 11:47 04/07/22 11:47 Radiology Impressions Chest X-Ray 04/07/22 12:03 Impression: Atherosclerosis. Laboratory Results WBC 12.2 10^3/uL (4.0-10.0) H 04/07/22 11:47 RBC 5.28 10^6/uL (4.1-5.3) 04/07/22 11:47 Hgb 14.8 g/dL (11.7-16.6) 04/07/22 11:47 Hct 46.2 % (42.0-52.0) 04/07/22 11:47 MCV 87.5 fl (80-94) 04/07/22 11:47 MCH 28.0 pg (28.0-34.0) 04/07/22 11:47 MCHC 32.0 g/dL (30.0-36.0) 04/07/22 11:47 RDW 14.1 % (12.1-15.1) 04/07/22 11:47 Plt Count 252 10^3/cmm (130-400) 04/07/22 11:47 MPV 12.4 fL (7.4-10.4) H 04/07/22 11:47 Neut % (Auto) 65.4 % 04/07/22 11:47 Lymph % (Auto) 23.9 % 04/07/22 11:47 [place] % (Auto) 5.6 % 04/07/22 11:47 Eos % (Auto) 3.6 % 04/07/22 11:47 Baso % (Auto) 1.1 % 04/07/22 11:47 Neut # (Auto) 8.00 10^3/uL (1.8-7.7) H 04/07/22 11:47 Lymph # (Auto) 2.9 10^3/uL (0.8-4.8) 04/07/22 11:47 [place] # (Auto) 0.7 10^3/uL (0.2-0.9) 04/07/22 11:47 Eos # (Auto) 0.4 10^3/uL (0.0-0.8) 04/07/22 11:47 Baso # (Auto) 0.1 10^3/uL (0.0-0.1) 04/07/22 11:47 Nucleated RBC % (auto) 0 % 04/07/22 11:47 Nucleated RBCs # 0.0 /100WBC 04/07/22 11:47 Sodium 137 mmol/L (136-145) 04/07/22 11:47 Potassium 4.5 mmol/L (3.5-5.1) 04/07/22 11:47 Chloride 100 mmol/L (98-107) 04/07/22 11:47 Carbon Dioxide 26 mmol/L (22-29) 04/07/22 11:47 Anion Gap 15.5 (5-19) 04/07/22 11:47 BUN 16 mg/dL (8-23) 04/07/22 11:47 Creatinine 1.1 mg/dL (0.7-1.2) 04/07/22 11:47 GFR Calculation 67.0 mL/min (90-130) L 04/07/22 11:47 Glucose 204 mg/dL (65-115) H 04/07/22 11:47 Calculated Osmolality 291 mOsm/kg (285-295) 04/07/22 11:47 Calcium 9.6 mg/dL (8.5-10.5) 04/07/22 11:47 Total Bilirubin 0.7 mg/dL (0.15-1.2) 04/07/22 11:47 AST 25 U/L (0-40) 04/07/22 11:47 ALT 28 U/L (0-41) 04/07/22 11:47 Alkaline Phosphatase 78 U/L (40-130) 04/07/22 11:47 Total Protein 7.4 g/dL (6.6-8.7) 04/07/22 11:47 Albumin 4.2 g/dL (3.5-5.2) 04/07/22 11:47 Globulin 3.2 g/dL (1.3-4.6) 04/07/22 11:47 Discharge Plan Discharge Condition: Stable Prescriptions: No Action nitroglycerin 0.4 mg tablet, sublingual 0.4 mg sublingual Q5M PRN (Reason: Chest Pain) Rx Instructions: do not exceed 3 doses per episode aspirin [Adult Aspirin Regimen] 81 mg tablet,delayed release (DR/EC) 81 mg PO DAILY albuterol sulfate [Ventolin HFA] 90 mcg/actuation HFA aerosol inhaler 2 puff inhalation Q6H PRN (Reason: Shortness Of Breath) Qty: 8.5 5RF furosemide 20 mg tablet 20 mg PO DAILY 90 Days Qty: 90 1RF pantoprazole 20 mg tablet,delayed release (DR/EC) 20 mg PO BEDTIME 90 Days Qty: 90 1RF potassium chloride 10 mEq tablet extended release 10 meq PO BEDTIME 90 Days Qty: 90 1RF rosuvastatin 20 mg tablet 20 mg PO BEDTIME 90 Days Qty: 90 3RF metoprolol tartrate 100 mg tablet 100 mg PO BID lisinopril 40 mg tablet 40 mg PO DAILY Qty: 90 3RF clotrimazole 1 % cream 1 applic topical BID 14 Days Qty: 45 2RF tamsulosin 0.4 mg capsule 0.8 mg PO DAILY 90 Days Qty: 180 1RF metformin 500 mg tablet extended release 24 hr 500 mg PO DAILY 90 Days Qty: 90 1RF fluconazole 150 mg tablet 150 mg PO Q3D 0 Days Qty: 2 1RF Rx Instructions: may repeat second dose 72 hrs after first dose if symptoms persist (DME) Blood Glucose Test Strip See Rx Instructions .ROUTE .MEDSUPPLY Qty: 50 11RF Rx Instructions: Brand/type to go with meter per insurance coverage (DME) lancets [facility] See Rx Instructions .ROUTE .MEDSUPPLY Qty: 100 11RF Rx Instructions: For use with glucose meter, brand/type per insurance (DME) blood-glucose meter [Blood Glucose Monitoring] Kit See Rx Instructions .ROUTE .MEDSUPPLY Qty: 1 0RF Rx Instructions: Brand/type per insurance coverage amlodipine 10 mg tablet 10 mg PO DAILY Qty: 90 3RF melatonin 5 mg Tablet 5 - 10 mg PO BEDTIME Referrals: Kaur Bay MD [Primary Care Provider] - Coding Level of Care Code ED Biostatistics Director for Chg Fwd Exam Comprehensive
--- NOTE | 2022-04-07 12:03 | XR_ITS ---
WS: [id number] Portable AP upright chest, 04/07/2022 Clinical Data: dizziness Comparison: Portable chest, 10/12/2021 Findings: No nodules, masses or effusions are seen. The heart is slightly enlarged. Midline sternotom y sutures are present. The aortic arch and descending thoracic aorta show mild tortuosity. No pneumon ia or pneumothorax is seen. XR/XR chest 1V portable [id number] Impression: Atherosclerosis.
[2022-04-07] MEDS: meclizine 25 mg tablet 50 MG PO (12:13)
[2022-04-07] MEDS: sodium chloride 0.9% 1,000 ML 999 ML IV (12:14)
[2022-04-07 12:16] LABS: Basophils # 0.1 10^3/uL (0.0-0.1); Basophils % 1.1 %; Eosinophils # 0.4 10^3/uL (0.0-0.8); Eosinophils % 3.6 %; Hematocrit 46.2 % (42.0-52.0); Hemoglobin 14.8 g/dL (11.7-16.6); Lymphocytes # 2.9 10^3/uL (0.8-4.8); Lymphocytes % 23.9 %; Mean Corpuscular Volume 87.5 fl (80-94); Mean Platelet Volume 12.4 fL (7.4-10.4); Monocytes # 0.7 10^3/uL (0.2-0.9); Monocytes % 5.6 %; Neutrophils % 65.4 %; Nucleated Red Blood Cells % 0 %; Platelet Count 252 10^3/cmm (130-400); Red Blood Count 5.28 10^6/uL (4.1-5.3); Red Cell Distribution Width 14.1 % (12.1-15.1); White Blood Count 12.2 10^3/uL (4.0-10.0)
[2022-04-07 12:29] LABS: Alanine Aminotransferase 28 U/L (0-41); Albumin Level 4.2 g/dL (3.5-5.2); Alkaline Phosphatase 78 U/L (40-130); Anion Gap 15.5 (5-19); Aspartate Amino Transferase 25 U/L (0-40); Blood Urea Nitrogen 16 mg/dL (8-23); Calcium 9.6 mg/dL (8.5-10.5); Carbon Dioxide 26 mmol/L (22-29); Chloride 100 mmol/L (98-107); Globulin 3.2 g/dL (1.3-4.6); Glucose 204 mg/dL (65-115); Osmolality Calculated 291 mOsm/kg (285-295); Potassium 4.5 mmol/L (3.5-5.1); Sodium 137 mmol/L (136-145); Total Bilirubin 0.7 mg/dL (0.15-1.2); Total Protein 7.4 g/dL (6.6-8.7)
== END 2022-04-07 13:49 | disposition home or self-care (01) ==
PROVIDERS: Emergency Provider Family Medicine; PCP Family Medicine
DX: R53.1 Weakness (principal); R42 Dizziness and giddiness; Z79.82 Long term (current) use of aspirin; I25.10 Atherosclerotic heart disease of native coronary artery without angina pectoris; J44.9 Chronic obstructive pulmonary disease, unspecified; Z86.73 Personal history of transient ischemic attack (TIA), and cerebral infarction without residual deficits; I10 Essential (primary) hypertension; Z95.1 Presence of aortocoronary bypass graft; Z87.891 Personal history of nicotine dependence
CPT/HCPCS: 71045; 80053; 85025; 93005; 99285; J7030; J8597

== ENCOUNTER → 2022-06-07 11:09 | Outpatient (BNVA) | payer MEDICARE, SELFPAY | PROVIDERS: PCP Family Medicine; Referring Provider Family Medicine; Visit Provider Orthopaedic Surgery | DX: M17.0 Bilateral primary osteoarthritis of knee (principal) | CPT/HCPCS: 73560; 73565; 99203 ==

== ENCOUNTER → 2022-06-29 09:40 | Outpatient (BNVA) | payer MEDICARE, SELFPAY | PROVIDERS: PCP Family Medicine; Visit Provider Family Medicine | DX: E11.9 Type 2 diabetes mellitus without complications (principal) | CPT/HCPCS: 80048; 83036 ==

== ENCOUNTER → 2022-07-12 10:23 | Outpatient (BNVA) | payer MEDICARE, SELFPAY | PROVIDERS: PCP Family Medicine; Visit Provider Orthopaedic Surgery | DX: M17.11 Unilateral primary osteoarthritis, right knee (principal) | CPT/HCPCS: 99213 ==

== ENCOUNTER 2022-07-20 16:11 | Outpatient (CLI) | payer MEDICARE, SELFPAY ==
--- NOTE | 2022-07-20 16:30 | CT_ITS ---
WS: [id number] CT RIGHT KNEE, NONCONTRAST TECHNIQUE: Noncontrast CT of the RIGHT knee to include the RIGHT hip and ankle. CLINICAL INFORMATION: pre op plan COMPARISON: None. DLP: 942.[address] scans at [facility] use at least one of these dose optimization techniques: automated e xposure control; mA and/or kV adjustment per patient size (includes targeted exams where dose is matc hed to clinical indication); or iterative reconstruction. FINDINGS: Advanced tricompartmental arthritis RIGHT knee. Hypertrophic patella. Vascular calcification. Small s upra-patellar effusion. Hypertrophic changes along the joint line. Degenerative arthritis both hips. Mild prostate enlargement measuring 4.7 CM. A few sigmoid diverticuli. Postoperative changes RIGHT ve ntral pelvic hernia repair. CT/CT knee RT wo con* [id number] IMPRESSION: Images obtained for preoperative purposes.
== END 2022-07-20 16:12 | disposition home or self-care (01) ==
PROVIDERS: PCP Family Medicine; Visit Provider Orthopaedic Surgery
DX: Z01.818 Encounter for other preprocedural examination (principal); M17.11 Unilateral primary osteoarthritis, right knee
CPT/HCPCS: 73700

== ENCOUNTER 2022-08-11 08:43 | Outpatient (CLI) | payer MEDICARE, SELFPAY | END 2022-08-11 08:44 | disposition home or self-care (01) | LOC: RT 08-17 08:44 | PROVIDERS: PCP Family Medicine; Visit Provider Orthopaedic Surgery | DX: Z01.810 Encounter for preprocedural cardiovascular examination (principal); R00.8 Other abnormalities of heart beat | CPT/HCPCS: 93005 ==

== ENCOUNTER 2022-08-21 11:08 | Observation (INO) | payer MEDICARE, SELFPAY ==
[2022-08-11 09:39] VITALS: BMI 49.4
--- NOTE | 2022-08-11 09:51 | ECG_ITS ---
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 Measurements Intervals Banks Rate: 68 P: -37 NC: 127 QRS: 42 QRSD: 121 T: 66 QT: 412 QTc: 439 Interpretive Statements SINUS RHYTHM WITH FREQUENT SUPRAVENTRICULAR PREMATURE COMPLEXES IN A BIGEMINAL PATTERN MODERATE INTRAVENTRICULAR CONDUCTION DELAY [110+ ms QRS DURATION] NONSPECIFIC T-WAVE ABNORMALITY Compared to ECG 04/07/2022 11:31:37 Intraventricular conduction delay now present T-wave abnormality now present Sinus bradycardia no longer present Sinus arrhythmia no longer present ST (T wave) deviation no longer present Electronically Signed On 08-11-2022 10:28:55 CDT by Jamari Moon M.D. [id number]
--- NOTE | 2022-08-11 10:30 | ANES.PREANE2 ---
Pre-Anesthetic Assessment Height/Weight: Height 1.83 m Weight 165.108 kg Operation Date: 08/21/22 12:30 Proposed Procedures p right total knee makoplasty/ 05797,M17.11(Right) - Himanshu Elias MD Familial anesthetic complications: none Social No alcohol and No tobacco Exam alert, oriented x 3, clear to auscultation bilaterally and regular rate & rhythm Airway Mallampati: Class IV Dentition: false Pulmonary Chronic Obstructive Pulmonary Disease and Sleep Apnea CV/HEM Coronary Artery Disease (cabg X 3 2013 - no cardiac s/s since, doing well) and Hypertension AAA GI Gastroesophageal Reflux Disease Anesthetic Plan ASA status: 3 Anesthesia: Regional (specify below) Risk of > 500 ml blood loss (7ml/kg in children): No Medications/Allergies Home Medications Medication Instructions Recorded Confirmed Last Taken Type aspirin 81 mg tablet,delayed 81 mg PO DAILY 10/06/21 08/11/22 04/07/22 History release (Adult Aspirin Regimen) nitroglycerin 0.4 mg sublingual 0.4 mg sublingual Q5M PRN Chest 10/06/21 08/11/22 Unknown History tablet Pain albuterol sulfate 90 mcg/actuation 2 puff inhalation Q6H PRN 01/09/22 08/11/22 Unknown Rx aerosol inhaler (Ventolin HFA) Shortness Of Breath #8.5 grams furosemide 20 mg tablet 20 mg PO DAILY 90 days #90 tabs 01/09/22 08/11/22 04/07/22 Rx pantoprazole 20 mg tablet,delayed 20 mg PO BEDTIME 90 days #90 tabs 01/09/22 08/11/22 04/06/22 Rx release rosuvastatin 20 mg tablet 20 mg PO BEDTIME 90 days #90 tabs 01/09/22 08/11/22 04/06/22 Rx blood sugar diagnostic (Blood #50 ea 04/06/22 08/04/22 Unknown Rx Glucose Test strips) blood-glucose meter (Blood Glucose #1 ea 04/06/22 08/04/22 Unknown Rx Monitoring kit) clotrimazole 1 % topical cream 1 applic topical BID 2 weeks #45 04/06/22 08/11/22 04/07/22 Rx grams lancets #100 ea 04/06/22 08/04/22 Unknown Rx melatonin 5 mg tablet 5 - 10 mg PO BEDTIME 04/07/22 08/11/22 04/06/22 History potassium chloride 10 mEq See Rx Instructions .Route 07/16/22 08/11/22 Unknown Rx tablet,extended release .COMPLEX #90 tabs prednisone 20 mg tablet 20 mg PO .AM 5 days #5 tabs 08/04/22 08/11/22 Unknown Rx lisinopril 40 mg tablet 20 mg PO DAILY 08/11/22 08/11/22 Unknown History metformin 500 mg tablet,extended 500 mg PO DAILY 08/11/22 08/11/22 Unknown History release 24 hr metoprolol tartrate 100 mg tablet 100 mg PO BID 08/11/22 08/11/22 Unknown History Allergies Allergy/AdvReac Type Severity Reaction Status Date / Time isosorbide mononitrate AdvReac Intermediate dizziness, Uncoded 08/04/22 10:36 hot, weakness PFSH Anesthesia Medical History CAD (coronary artery disease) of bypass graft S/P [place], stenting and bypass Chest pain COPD (chronic obstructive pulmonary disease) CVA (cerebral vascular accident) GERD (gastroesophageal reflux disease) History of stroke Hypertension Surgical History History of hernia repair History of right knee surgery 1976 Hx of CABG 2014 Family History Father Cancer Mother Dementia Diabetes Social History Smoking and tobacco status: former smoker Quit status (tobacco): has quit using tobacco Year quit tobacco: 2008 Former quit date comment: 1ppd x 35 years Data Anesthesia 08/11/22 10:14 08/11/22 10:14 Cardiac Studies: Echocardiogram 10/13/21 Sestamibi Stress Test (Cardiology) 10/13/21 Cardiac Event Monitor 11/01/21
[2022-08-11 10:31] LABS: Basophils # 0.1 10^3/uL (0.0-0.1); Basophils % 0.9 %; Eosinophils # 0.5 10^3/uL (0.0-0.8); Eosinophils % 3.9 %; Hematocrit 46.5 % (42.0-52.0); Hemoglobin 14.9 g/dL (11.7-16.6); Lymphocytes # 3.1 10^3/uL (0.8-4.8); Lymphocytes % 22.7 %; Mean Corpuscular Hemoglobin 28.1 pg (28.0-34.0); Mean Corpuscular Volume 87.7 fl (80-94); Mean Platelet Volume 12.3 fL (7.4-10.4); Neutrophils # 8.98 10^3/uL (1.8-7.7); Neutrophils % 65.2 %; Nucleated Red Blood Cells % 0 %; Platelet Count 258 10^3/cmm (130-400); Red Cell Distribution Width 13.4 % (12.1-15.1); White Blood Count 13.8 10^3/uL (4.0-10.0)
[2022-08-11 10:47] LABS: Anion Gap 16.2 (5-19); Blood Urea Nitrogen 17 mg/dL (8-23); Calcium 8.8 mg/dL (8.5-10.5); Carbon Dioxide 22 mmol/L (22-29); Chloride 103 mmol/L (98-107); Glomerular Filtration Rate 112.5 mL/min (90-130); Glucose 186 mg/dL (65-115); Osmolality Calculated 290 mOsm/kg (285-295); Potassium 4.2 mmol/L (3.5-5.1); Sodium 137 mmol/L (136-145)
[2022-08-21] VITALS (20 sets, daily range): BP systolic 114–188; BP diastolic 65–106; PULSE 78–88; RESP 13–20; TEMP 36.1–37.1; O2SAT 91–96
[2022-08-21] MEDS: oxyCODONE 20 mg ER (12 HR) Tablet PO (07:44)
[2022-08-21] MEDS: CELEcoxib 200 mg Capsule 400 MG PO (07:45)
[2022-08-21] MEDS: acetaminophen 500 mg Tablet 1000 MG PO ×2 (07:46→16:44)
[2022-08-21] MEDS: gabapentin 300 mg Capsule PO ×2 (07:46→20:24)
[2022-08-21] MEDS: sodium chloride 0.9% 1,000 ML 30 ML IV (07:48)
[2022-08-21 07:52] LABS: Glucose Point of Care 156 mg/dL (70-110)
--- NOTE | 2022-08-21 08:59 | W.PM.OPSFHP ---
Same Day Surgery H&P Indication for Procedure/HPI DATE OF PROCEDURE: August 21, 2022 CHIEF COMPLAINT/INDICATIONFOR SURGICAL PROCEDURE: Osteoarthritis right knee here for total knee arthroplasty PREOP DIAGNOSIS: Osteoarthritis right knee PLANNED PROCEDURE: Operation Date: 08/21/22 09:05 Proposed Procedures p right total knee makoplasty/ 19712,M17.11(Right) - Himanshu Elias MD 66-year-old male diabetic with osteoarthritis and severe right knee pain. Can walk no more than a few blocks without severe discomfort. Uses a cane with incomplete help. Has failed anti-inflammatories. Here for total knee arthroplasty. Medications/Allergies* Home Medications Medication Instructions Recorded Confirmed Type aspirin 81 mg tablet,delayed 81 mg PO DAILY 10/06/21 08/11/22 History release (Adult Aspirin Regimen) nitroglycerin 0.4 mg sublingual 0.4 mg sublingual Q5M PRN Chest 10/06/21 08/11/22 History tablet Pain melatonin 5 mg tablet 5 - 10 mg PO BEDTIME 04/07/22 08/11/22 History lisinopril 40 mg tablet 20 mg PO DAILY 08/11/22 08/11/22 History metformin 500 mg tablet,extended 500 mg PO DAILY 08/11/22 08/11/22 History release 24 hr metoprolol tartrate 100 mg tablet 100 mg PO BID 08/11/22 08/11/22 History Allergies/Adverse Reactions Allergy/AdvReac Type Severity Reaction Status Date / Time isosorbide mononitrate AdvReac Intermediate dizziness, Uncoded 08/04/22 10:36 hot, weakness Current Medications: Generic Name Dose Route Start Last Admin Trade Name Freq PRN Reason Stop Dose Admin Sodium Chloride 1,000 mls @ 30 mls/hr 08/21/22 07:30 08/21/22 07:48 Sodium Chloride 0.9% IV 08/22/22 07:29 30 mls/hr .Q24H TANVIR Administration Pertinent History/Comorbid Conditions* Medical History (Updated 06/30/22 @ 13:05 by Kaur Bay MD) CAD (coronary artery disease) of bypass graft S/P [place], stenting and bypass Chest pain COPD (chronic obstructive pulmonary disease) CVA (cerebral vascular accident) GERD (gastroesophageal reflux disease) History of stroke Hypertension Surgical History (Updated 10/26/21 @ 12:45 by Kaur Bay MD) History of hernia repair History of right knee surgery 1976 Hx of CABG 2014 Family History (Updated 10/06/21 @ 09:26 by Ani Todd CMA) Diabetes Mother Dementia Mother Cancer Father Social History Smoking and tobacco status: former smoker Quit status (tobacco): has quit using tobacco Year quit tobacco: 2008 Former quit date comment: 1ppd x 35 years Pertinent Exam Findings alert, oriented x 3, clear to auscultation bilaterally, regular rate & rhythm and operative site marked Right knee No effusion Motion full extension to 90 degrees MOTOR: Strong quadriceps hamstrings tibialis anterior and extensor houses longus strength SENSATION: Intact to light touch Recommendations Surgery/Procedure today Coding Level of Care Code Acute Code for Chg Fwd Diagnoses
[2022-08-21] MEDS: ceFAZolin 1,000 MG in sodium chloride 0.9% (plus) 50 ML 100 MG IV (09:07)
[2022-08-21] MEDS: ceFAZolin 2,000 MG in sodium chloride 0.9% (plus) 50 ML 100 MG IV ×2 (09:08→16:45)
[2022-08-21] MEDS: tranexamic acid 1,000 mg/10mL SDV 1000 MG IV (09:37)
--- NOTE | 2022-08-21 09:42 | P.ANESUD_ITS ---
Pre-Anesthetic Update Pre-Anesthetic Assessment: Date of Surgery/Procedure: 08/21/22 Preop Melisa gnosis: Osteoarthritis right knee Proposed Procedure: Operation Date: 08/21/22 09:05 Proposed Procedures p right total knee makoplasty/ 02431,M17.11(Right) - Himanshu Elias MD Any changes to Pre-Anesthetic Assessment?: No Last Intake: Intake Last Liquid Date 08/20/22 Last Liquid Time 17:00 Last Solid Date 08/20/22 Last Solid Time 17:00 Vitals: Temperature 97 F L 08/21/22 07:37 Temperature Source Temporal Artery S can 08/21/22 07:37 Pulse Rate 81 08/21/22 07:37 Respiratory Rate 18 08/21/22 07:44 Respiratory Effort Spontaneous 08/21/22 07:44 Respiratory Depth Normal 08/21/22 07:44 Respiratory Patter n Normal 08/21/22 07:44 Blood Pressure 188/106 08/21/22 07:37 Blood Pressure Etta n 133 08/21/22 07:37 Pulse Oximetry 95 08/21/22 07:44 Oxygen Delivery Me thod Room Air 08/21/22 07:41 Exam: Pre-Anes Outpt Exam: alert, oriented x 3, clear to auscultation bilaterally and regular rate & rhythm Cardiac Studies: Echocardiogram 10/13/21 Sestamibi Stress Test (Cardiology) 10/13 Cardiac Event Monitor 11/01/21 Anesthesia Procedures Nerve Block: Nerve Block 1: Main Anesthesia: spinal anesthesia block Time Out Performed: Yes Consent: requested by attending/covering physician, from patient, risks and benefits reviewed and patient agrees to proceed Nerve block location: adductor canal (right) Anesthesia monitors applied: pulse oximetry, EKG, BP cuff and oxygen Nerve block position: supine Anesthetic Used: ropivicaine 0.5% Amount of anesthesia used (mL): 20 Ultrasound used to: recognize landmarks Nerve Stimulator Used?: No Interscalene/Femoral BLK: 4 stimuplex 21 g needle used for position and inplane approach Injection: neg aspiration of heme Patient Tolerated Procedure: well Complications: none
[2022-08-21] MEDS: tranexamic acid 1,000 mg/10mL SDV 1000 MG XX (09:56)
[2022-08-21] MEDS: EPINEPHrine 1 mg/mL INJ XX (09:56)
[2022-08-21] MEDS: ketorolac 30 mg/mL INJ XX (09:56)
[2022-08-21] MEDS: sodium chloride 0.9% 100 mL Bag XX (09:58)
--- NOTE | 2022-08-21 11:15 | XR_ITS ---
WS: [id number] EXAMINATION: XR knee RT 1-2V 12792 REASON FOR EXAM: Right Total Knee arthroplasty COMPARISON: 06/07/2022 ORDER DATE: 08/21/2022 11:48 AM FINDINGS: Since previous exam has been total knee replacement with satisfactory prosthesis positioning. There i s postsurgical changes of gas and swelling in the periarticular and prepatellar soft tissues. XR/XR knee RT 1-2V [id number] IMPRESSION: Recent postoperative changes of total knee replacement. No sign of prosthesis a bnormality in the position or placement.
--- NOTE | 2022-08-21 11:16 | PM.OP ---
Operative Report Date of procedure: August 21, 2022 Pre-op diagnosis: Preop Diagnosis Osteoarthritis right knee Post-op diagnosis: same Post-op diagnosis: Same Post-op findings: Same Procedure done: Right total knee arthroplasty Implants: Karen Triathalon total knee arthroplasty components were used includin) Size 6 triathalon cruciate retaining femoral component 2) Size 7 Tritanium tibial component 3) Size 7/9 mm thickness CS tibial bearing insert Pathology: none sent Surgeon: Himanshu Elias Electric Organ Inspector And Repairer: Brent Schumacher Electric Organ Inspector And Repairer: The nurse practitioner the nurse practitioner assisted with critical portions of the case including positioning, draping, exposure, component implantation, closure and dressing application and is present through the entirety of the case. Anesthesia: Nerve Block (Spinal, adductor canal block) Estimated blood loss (mL): 300 Findings: The patient eburnated bone over the medial femoral condyle and medial tibial plateau. There was minimal patellar chondromalacia and the patella articulated well with the trochlear groove of the femoral component. Condition: stable Disposition: PACU Procedure: The patient was taken to the operating room. Patient was given 1 g of tranexamic acid and 3 g of Ancef. The above anesthesia provided by the anesthesia service. A timeout was performed. The patient was prepped and draped in the usual fashion with the lower extremity exposed. A anterior incision was made, midline, from a point proximal to the patella to the distal tibial tubercle. The knee was entered through a medial parapatellar approach. The patella could be displaced laterally and the knee flexed. The patellar fat pad was resected to provide better visibility. Retractors were placed medially and laterally adjacent to the tibial plateau. At a point approximately 8 cm above the patella, 2 small incisions were made with a scalpel blade and 2 long threaded pins were placed into the anterior medial femur engaging both cortices. The femoral arrays were placed over these pins and secured. At a point 8 cm distal to the tibial tubercle. 2 shorter bicortical threaded pins were placed across the anterior medial tibia and the tibial arrays placed. A checkpoint was made just proximal and medial to the medial femoral condyle and just medial to the tibial plateau. Small osteotomes were placed in the joint in both flexion and extension to determine ligamentous laxity. The femoral component was externally rotated and additional 1 degree and elevated to allow a 20 mm gap in extension and 19 of flexion to accommodate the preoperative 10 degree flexion contracture. The DAVID robot was then introduced to the field and the femur and tibia cut in accordance with our plan. Lecture cautery was then applied across the posterior capsule for additional hemostasis. he posterior capsule and collateral ligaments were then injected with a solution of 100 mL of 0.2% ropivacaine, 1 mL of a 1:1000 epinephrine solution, 30 mg of Toradol, and 1 g of tranexamic acid. A trial with the above components provided excellent stability and balance through a full range of motion. A gentamicin irrigation solution of 160 mg gentamicin and in 100 mL of normal saline was used during bone cuts and to irrigate surfaces before implantation of components. The femur was then prepared for the femoral pegs of the component in the tibia for the tibial component. The femur and tibia were then press-fit into place. An osteotome was used to remove the lateral 8 mm of the patella to minimize chances of later impingement. A neurectomy was accomplished circumferentially about the patella with electrocautery and lateral osteophytes removed. Surfaces were cleaned with a gentamicin solution. The femur and tibia were then press-fit into place. Tinal polyethylene component was then snapped into place into the tibia. The knee was then soaked in a 0.35% solution. Excessive betadine was removed with suction. The extensor retinaculum was closed with a running 1 Stratafix interrupted 1 Ethibond. The subcutaneous tissues were closed with 2-0 Vicryl and the skin was closed with a running 4-0 Stratafix. The wound was covered with a Dermabond Prineo dressing. It was covered with 4xrs and a compressive Tubigauze was applied. The patient was taken to recovery room in stable condition.
[2022-08-21] MEDS: predniSONE 20 mg Tablet PO (13:44)
[2022-08-21] MEDS: sodium chloride 0.9% 1,000 ML 100 ML IV (13:44)
--- NOTE | 2022-08-21 14:36 | ANE.PACU2 ---
Inpatient post-anesthesia follow up: Airway intact: Yes Vital signs: Temperature 97.7 F Pulse Rate 82 Respiratory Rate 18 Blood Pressure 147/88 Pulse Oximetry 91 Oxygen Delivery Me thod Room Air Oxygen Flow Rate Fraction of Inspir ed Oxygen Hydration adequate: Yes Nausea and vomiting: No Pain level: 1 Mental status: Baseline
[2022-08-21] MEDS: oxyCODONE 5 mg IR Tab/Cap PO ×2 (16:45→20:55)
[2022-08-21] MEDS: sennosides-docusate Tablet 2 TAB PO (17:40)
[2022-08-21] MEDS: potassium chloride ER 10 mEq Tablet PO (17:40)
[2022-08-21] MEDS: atorvastatin 40 mg Tablet 80 MG PO (20:24)
[2022-08-21] MEDS: pantoprazole DR 40 mg Tablet PO (20:24)
[2022-08-21] MEDS: metoprolol tartrate 50 mg Tablet 100 MG PO (20:24)
[2022-08-21] MEDS: CELEcoxib 200 mg Capsule PO (20:24)
[2022-08-21 21:05] LABS: Glucose Point of Care 259 mg/dL (70-110)
[2022-08-21] MEDS: insulin lispro 100 unit/1 mL SUBCUT (21:35)
[2022-08-22] MEDS: acetaminophen 500 mg Tablet 1000 MG PO ×2 (00:04→08:32)
[2022-08-22] MEDS: ceFAZolin 2,000 MG in sodium chloride 0.9% (plus) 50 ML 100 MG IV ×2 (00:05→08:34)
[2022-08-22] MEDS: sodium chloride 0.9% 1,000 ML 100 ML IV (00:06)
[2022-08-22 00:15] VITALS: BP 140/85; PULSE 84; RESP 20; TEMP 36.8; O2SAT 95
[2022-08-22 02:55] VITALS: RESP 18
[2022-08-22] MEDS: oxyCODONE 5 mg IR Tab/Cap PO ×2 (02:55→08:31)
[2022-08-22 03:04] VITALS: BP 136/84; PULSE 87; RESP 20; TEMP 36.6; O2SAT 95
--- NOTE | 2022-08-22 03:07 | PC.NURSE ---
While rounding on patient, he stated he does not feel like he emptying his bladder with urination. Bladder scan performed and approximately 310ml were measured. Patient stated he felt the urge to void at this time. Privacy and urinal provided to patient and instructed to notify this nurse when he was finished.
--- NOTE | 2022-08-22 03:38 | PC.NURSE ---
The patient was able to void 200 ml in the urinal, and also missed the urinal and voided on himslef and the bed. The patient was re scanned and his bladder was noted to be empty. When talking with the patient he stated that at home he is up frequently to urinate and goes small amounts at a time.
[2022-08-22 06:18] LABS: Glucose Point of Care 155 mg/dL (70-110)
--- NOTE | 2022-08-22 07:35 | PC.PHAR ---
unable to update pts med rec- has discharge orders in -ext med history shows metoprolol tartrate 100mg take 50 mg po bid- R Ten did the medication reconciliation and had entered 100mg bid-ext med history shows lisinopril 40mg daily filled on 08/03/22 90d/s med entered was 20mg daily-ext med history also shows flomax 0.4mg take 0.8mg daily filled 05/30/22 90d/s,amlodipine 10mg daily filled 05/23/22 90d/s and hydralazine 25mg tid filled 04/12/22 90d/s that were not entered
[2022-08-22 08:00] VITALS: BP 151/76; PULSE 78; PULSE 81; RESP 18; TEMP 36.3; O2SAT 96; O2SAT 97
[2022-08-22 08:31] VITALS: RESP 18
[2022-08-22] MEDS: gabapentin 300 mg Capsule PO (08:32)
[2022-08-22] MEDS: FUROsemide 20 mg Tablet PO (08:32)
[2022-08-22] MEDS: sennosides-docusate Tablet 2 TAB PO (08:32)
[2022-08-22] MEDS: aspirin 81 mg EC Tablet PO (08:32)
[2022-08-22] MEDS: predniSONE 20 mg Tablet PO (08:32)
[2022-08-22] MEDS: metoprolol tartrate 50 mg Tablet 100 MG PO (08:32)
[2022-08-22] MEDS: CELEcoxib 200 mg Capsule PO (08:33)
[2022-08-22] MEDS: apixaban 5 mg Tablet 2.5 MG PO (08:33)
[2022-08-22] MEDS: insulin lispro 100 unit/1 mL SUBCUT (08:33)
[2022-08-22] MEDS: lisinopril 20 mg Tablet PO (08:37)
--- NOTE | 2022-08-22 09:53 | PC.CHAP ---
Pastoral Care Encounter/Spiritual Assessment Type of Contact [] Declined hash slinger visit [] Patient/Family/Request visit [] Outpatient visit [] Follow-up visit [] Physician referral [] Code/Alert [x] Routine visit [] Staff referral [] Actively dying [] Patient sleeping [] Family support [] [] Out of room [] Palliative care [] [] Receiving care in room [] Pre-surgical visit [] Trauma [] Long length of stay [] ICU visit [] Other: Relational/Emotional Strength [x] Patient feels connected with others/family/visitors/staff [] Distress [] Loneliness/isolation [] Abandonment Spirituality of Patient [x] Person of Rachelle [] Attends Hindu of their Rachelle [x] Believes in Prayer [] Reads Bible or Cheondoism materials [] There are Spiritual issues to be addressed 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 Interventions [x] Prayer [x] Active listening [] Non-anxious presence [x] Spiritual/emotional support [] Crisis/trauma care [] Spiritual counseling [] Bereavement support [] Provided bereavement packet [] Provided Bible/devotional materials [] Provided toy/stuffed animal, coloring book to patient or family member [] Provided Communion [] Anointing/West [] Salvation [x] Completed spiritual assessment [] Other: Impact on Illness or Injury [] Angry [] Fearful [] Anxious [] Often cries [] Exhaustion [] Unable to work [] Unable to attend pentecostalism [] Unable to walk/stand [] Unable to read [] Unable to drive [] Unable to eat/drink [] Unable to sleep [] Unable to be with family [] Patient intubated [] Other: Summary Time spent with patient 5 min
[2022-08-22 11:23] LABS: Glucose Point of Care 195 mg/dL (70-110)
--- NOTE | 2022-08-22 14:37 | P.DS_ITS ---
Discharge Providers Date of Admission: 08/21/22 11:08 Date of Discharge: August 22, 2022 Attending Provider at Admission: Himanshu Elias MD Attending Provider at Discharge: Himanshu Elias MD Primary Care Provider: Kaur Bay MD Diagnoses at Discharge Discharge Diagnosis (1) Status post right knee replacement: Status: Acute (2) Osteoarthritis of right knee: Status: Resolved (3) Type 2 diabetes mellitus: Status: Acute Qualifiers: Diabetes mellitus terminal gauger insulin use: without mcc use Diabetes mellitus complication status: without complication Qualified Code(s): E11.9 - Type 2 diabetes mellitus without complications (4) COPD (chronic obstructive pulmonary disease): Status: Acute Qualifiers: COPD type: chronic bronchitis Chronic bronchitis type: simple Qualified Code(s): J41.0 - Simple chronic bronchitis Reason for Visit Reason for Visit: M17.11 Brief History: The patient is a 67-year-old male with chronic right knee pain admitted for elective right total knee arthroplasty Hospital Course Hospital Course The patient tolerated surgery well. They remained hemodynamically stable. They was begun on Eliquis and foot pumps for DVT prophylaxis. The patient was mobilized with therapy beginning the day of surgery and by the first postoperative day independent with the walker. As the pain was adequately controlled and they were fully mobile they were discharged home. Physical Exam Narrative: On the day of discharge the knee incision was clean. They had no drainage. There is minimal swelling in the thigh and knee and the calf. No distal neurovascular deficits were noted Discharge Data Studies Completed and Pending Completed Studies During Hospitalization Category Date Time Status XR knee RT 1-2V 53674 Routine Exams 08/21/22 11:15 Completed Radiology Impressions Knee X-Ray 08/21/22 11:15 IMPRESSION: Recent postoperative changes of total knee replacement. No sign of prosthesis abnormality in the position or placement. Laboratory Results WBC 13.8 10^3/uL (4.0-10.0) H 08/11/22 10:14 RBC 5.30 10^6/uL (4.1-5.3) 08/11/22 10:14 Hgb 13.0 g/dL (11.7-16.6) 08/22/22 05:00 Hct 46.5 % (42.0-52.0) 08/11/22 10:14 MCV 87.7 fl (80-94) 08/11/22 10:14 MCH 28.1 pg (28.0-34.0) 08/11/22 10:14 MCHC 32.0 g/dL (30.0-36.0) 08/11/22 10:14 RDW 13.4 % (12.1-15.1) 08/11/22 10:14 Plt Count 258 10^3/cmm (130-400) 08/11/22 10:14 MPV 12.3 fL (7.4-10.4) H 08/11/22 10:14 Neut % (Auto) 65.2 % 08/11/22 10:14 Lymph % (Auto) 22.7 % 08/11/22 10:14 Sebastian % (Auto) 7.0 % 08/11/22 10:14 Eos % (Auto) 3.9 % 08/11/22 10:14 Baso % (Auto) 0.9 % 08/11/22 10:14 Neut # (Auto) 8.98 10^3/uL (1.8-7.7) H 08/11/22 10:14 Lymph # (Auto) 3.1 10^3/uL (0.8-4.8) 08/11/22 10:14 Sebastian # (Auto) 1.0 10^3/uL (0.2-0.9) H 08/11/22 10:14 Eos # (Auto) 0.5 10^3/uL (0.0-0.8) 08/11/22 10:14 Baso # (Auto) 0.1 10^3/uL (0.0-0.1) 08/11/22 10:14 Nucleated RBC % (auto) 0 % 08/11/22 10:14 Nucleated RBCs # 0.0 /100WBC 08/11/22 10:14 Sodium 137 mmol/L (136-145) 08/11/22 10:14 Potassium 4.2 mmol/L (3.5-5.1) 08/11/22 10:14 Chloride 103 mmol/L (98-107) 08/11/22 10:14 Carbon Dioxide 22 mmol/L (22-29) 08/11/22 10:14 Anion Gap 16.2 (5-19) 08/11/22 10:14 BUN 17 mg/dL (8-23) 08/11/22 10:14 Creatinine 0.7 mg/dL (0.7-1.2) 08/11/22 10:14 GFR Calculation 112.5 mL/min (90-130) 08/11/22 10:14 Glucose 186 mg/dL (65-115) H 08/11/22 10:14 POC Glucose 195 mg/dL (70-110) H 08/22/22 11:19 Calculated Osmolality 290 mOsm/kg (285-295) 08/11/22 10:14 Calcium 8.8 mg/dL (8.5-10.5) 08/11/22 10:14 Vitals Last Vital Signs Temp 97.3 F L 08/22/22 08:00 Pulse 78 08/22/22 08:00 Resp 18 08/22/22 08:31 BP 151/76 08/22/22 08:00 Pulse Ox 97 08/22/22 08:00 O2 Del Method Room Air 08/22/22 08:00 Discharge Plan Discharge Patient Disposition: Home Health Service Condition: Stable Prescriptions: New acetaminophen 500 mg Tablet 1,000 mg PO Q8H 14 Days Qty: 84 0RF Eliquis 5 mg Tablet 2.5 mg PO BID 10 Days Qty: 10 0RF celecoxib 200 mg Capsule 200 mg PO Q12H 14 Days Qty: 28 0RF gabapentin 300 mg Capsule 300 mg PO BID@0900,2100 7 Days Qty: 14 0RF oxycodone 5 mg Tablet 5 mg PO Q4H PRN (Reason: Moderate Pain) 7 Days Qty: 40 0RF Continued nitroglycerin 0.4 mg tablet, sublingual 0.4 mg sublingual Q5M PRN (Reason: Chest Pain) Rx Instructions: do not exceed 3 doses per episode aspirin [Adult Aspirin Regimen] 81 mg tablet,delayed release (DR/EC) 81 mg PO DAILY prednisone 20 mg tablet 20 mg PO .AM 5 Days Qty: 5 0RF albuterol sulfate [Ventolin HFA] 90 mcg/actuation HFA aerosol inhaler 2 puff inhalation Q6H PRN (Reason: Shortness Of Breath) Qty: 8.5 5RF furosemide 20 mg tablet 20 mg PO DAILY 90 Days Qty: 90 1RF pantoprazole 20 mg tablet,delayed release (DR/EC) 20 mg PO BEDTIME 90 Days Qty: 90 1RF rosuvastatin 20 mg tablet 20 mg PO BEDTIME 90 Days Qty: 90 3RF clotrimazole 1 % cream 1 applic topical BID 14 Days Qty: 45 2RF (DME) Blood Glucose Test Strip See Rx Instructions .ROUTE .MEDSUPPLY Qty: 50 11RF Rx Instructions: Brand/type to go with meter per insurance coverage (DME) lancets Misc See Rx Instructions .ROUTE .MEDSUPPLY Qty: 100 11RF Rx Instructions: For use with glucose meter, brand/type per insurance (DME) blood-glucose meter [Blood Glucose Monitoring] Kit See Rx Instructions .ROUTE .MEDSUPPLY Qty: 1 0RF Rx Instructions: Brand/type per insurance coverage potassium chloride 10 mEq tablet extended release See Rx Instructions .ROUTE .COMPLEX Qty: 90 0RF Dose Instruction: TAKE 1 TABLET BY MOUTH EVERY DAY AT BEDTIME Rx Instructions: TAKE 1 TABLET BY MOUTH EVERY DAY AT BEDTIME melatonin 5 mg Tablet 5 - 10 mg PO BEDTIME metoprolol tartrate 100 mg tablet 100 mg PO BID lisinopril 40 mg tablet 20 mg PO DAILY metformin 500 mg tablet extended release 24 hr 500 mg PO DAILY Discharge Orders: Discharge Order (Routine); Ordered 08/21/22 Ordered By: Himanshu Elias Referrals: [facility] [Outside] Brent Schumacher FNP [Physician Business Banking Sales Assistant] - 08/25/22 9:45 am Discharge Diet: Advance as tolerated Discharge Activity: Limit activity as instructed Patient Instructions: Gabapentin (By mouth), Oxycodone, Rapid Release (By mouth), Celecoxib (By mouth), Apixaban (By mouth), Knee Replacement (DC), Joint Replacement Stoplight, Opioid Safety Activity Restrictions/Additional Instructions: Okay to shower Keep Tubigauze sleeve in place for swelling. Okay to remove for hygiene. Apply FirstIce up to 20 min/hr for pain and swelling Take Celebrex twice a day for the next 15 days for pain , discontinue other anti-inflammatories Take Neurontin twice a day for 7 days. Take Tylenol 500mg (2 tabs) as needed 3 times a day for mild pain take oxycodone for breakthrough pain. Exercises per physical therapy. May weight-bear as tolerated on total knee arthroplasty IF HAVE ANY PROBLEMS OR QUESTIONS CALL HOSPITAL PUBLIC SPEAKING COACH AT AND ASK TO HAVE DR. MYRA PAGED. Discharge Attestations Time Spent in Discharge Care*: other Quality Metrics Clinical Quality Measures [ No reported AMI, CVA or VTE this stay] Coding Level of Care Code Acute Code for Chg Fwd Diagnoses Status post right knee replacement Z96.651 Osteoarthritis of right knee M17.11 Type 2 diabetes mellitus E11.9 Diabetes mellitus terminal gauger insulin use: without terminal gauger use Diabetes mellitus complication status: without complication COPD (chronic obstructive pulmonary disease) J41.0 COPD type: chronic bronchitis Chronic bronchitis type: simple
== END 2022-08-22 11:43 | disposition home health service (06) ==
LOC: MEDSURG 11:08
PROVIDERS: Anesthesiology; Admitting Provider Orthopaedic Surgery; PCP Family Medicine; Visit Provider Orthopaedic Surgery
PROC: 8E0Y0CZ Robotic Assisted Procedure of Lower Extremity, Open Approach (ICD-10-PCS; CPT 27447; principal; 2022-08-21 09:05)
DX: M17.11 Unilateral primary osteoarthritis, right knee (principal); I45.89 Other specified conduction disorders; R94.31 Abnormal electrocardiogram [ECG] [EKG]; Z79.82 Long term (current) use of aspirin; Z79.52 Long term (current) use of systemic steroids; Z79.84 Long term (current) use of oral hypoglycemic drugs; J41.0 Simple chronic bronchitis; E11.9 Type 2 diabetes mellitus without complications; G47.30 Sleep apnea, unspecified; I25.10 Atherosclerotic heart disease of native coronary artery without angina pectoris; Z95.1 Presence of aortocoronary bypass graft; I10 Essential (primary) hypertension; K21.9 Gastro-esophageal reflux disease without esophagitis; Z86.73 Personal history of transient ischemic attack (TIA), and cerebral infarction without residual deficits; Z87.891 Personal history of nicotine dependence
CPT/HCPCS: 20985; 27447; 36415; 36416; 73560; 80048; 82962; 85018; 85025; 96372; 97110; 97116; 97161; 97166; 97530; C1776; G0378; J0171; J0690; J1580; J1815; J1885; J2405; J2704; J2795; J3010; J7030; J7512

== ENCOUNTER 2022-08-22 12:04 | Emergency (ER) | payer MEDICARE, SELFPAY ==
[2022-08-22] VITALS (11 sets, daily range): BP systolic 96–155; BP diastolic 54–94; PULSE 53–78; RESP 14–18; TEMP 36.7; O2SAT 92–98
--- NOTE | 2022-08-22 12:46 | XR_ITS ---
WS: [id number] EXAMINATION: XR chest 1V portable [id number] REASON FOR EXAM: near syncopy COMPARISON: 04/07/2022 ORDER DATE: 08/22/2022 12:48 PM TECHNIQUE: A single, portable frontal chest x-ray was obtained. X-RAY FINDINGS: Findings: No nodules, masses or effusions are seen. The heart is slightly enlarged. Midline sternotomy sutures and post CABG changes are present. The aortic arch and descending thoracic aorta s how mild tortuosity. No pneumonia or pneumothorax is seen. XR/XR chest 1V portable [id number] Impression: Atherosclerosis. No significant change from previous
--- NOTE | 2022-08-22 12:48 | W.ED.DIZZY ---
Documented by User: JESSICA Howell 08/22/22 17:15 HPI - Dizziness General: Chief Complaint: Dizziness Stated Complaint: feels like passing out Time Seen by Provider: 08/22/22 12:28 History of Present Illness: HPI Narrative: Patient is a 67-year-old male who comes to the ED after near syncopal episode. Patient had right total knee replacement done by Dr. Elias yesterday August 21. He was scheduled for discharge today and while trying to get patient transferred into his vehicle he had an episode where he became diaphoretic, dizziness and lightheaded. Patient says he felt like he was close to passing out but he did not. The nursing staff then sent patient here to the ED for evaluation. Patient denies any fevers, shortness of breath or chest pain. He denies passing out or falling and hitting his head. He states that his right knee pain is currently a 7 out of 10 and at the time when they were trying to transfer him into the vehicle it was a 10 out of 10. Patient feels like he was discharged home too early and was not ready to go home yet. Patient feels like he is unsure if he will be able to manage at home and his is unsure if she can help take care of him at home currently. Here in the ED he says his symptoms of diaphoresis, lightheadedness and dizziness have resolved. Associated symptoms: Reports diaphoresis; Denies chest pain, chills, headache(s), nausea, nasal congestion, palpitations or vomiting Associated neuro symptoms: Deny numbness in extremities Review of Systems Const: Reports: diaphoresis; Denies: fever(s), chills or fatigue Eyes: Denies: change in vision or eye discomfort ENMT: Denies: throat pain, odynophagia, nasal discharge or nasal congestion Card: Reports: lightheadedness and pre-syncope; Denies: chest pain, palpitations, edema, swelling of feet/ankles, dyspnea on exertion or orthopnea Resp: Denies: dyspnea, productive cough or non-productive cough GI: Denies: abdominal pain, nausea, vomiting, diarrhea, constipation or hematochezia : Denies: flank pain, difficulty urinating, dysuria or hematuria Musc: Denies: neck pain, back pain or extremity swelling Skin/Breast: Denies: rash or new lesions Neuro: Reports: dizziness; Denies: headache(s), numbness in extremities or weakness in extremities PFSH ED PFSH: Medical History CAD (coronary artery disease) of bypass graft S/P [place], stenting and bypass Chest pain COPD (chronic obstructive pulmonary disease) CVA (cerebral vascular accident) GERD (gastroesophageal reflux disease) History of stroke Hypertension Surgical History History of hernia repair History of right knee surgery 1976 Hx of CABG 2014 Family History Father Cancer Mother Dementia Diabetes Social History Smoking and tobacco status: former smoker Quit status (tobacco): has quit using tobacco Year quit tobacco: 2008 Former quit date comment: 1ppd x 35 years Physical Exam Const: COMMON NORMALS: patient oriented x3 HENMT: COMMON NORMALS: normocephalic HEAD & SCALP: normocephalic MOUTH: Normal oral and palatal mucosa present THROAT: posterior oropharynx normal and uvula midline Neck/C-Spine: COMMON NORMALS: supple GENERAL: Yes normal visual inspection Resp: COMMON NORMALS: normal respiratory effort, No retractions, No use of accessory muscles and clear to auscultation bilaterally AUSCULTATION: clear to auscultation bilaterally Cardio: COMMON NORMALS: regular rate, regular rhythm, S1 normal heart sound present, S2 normal heart sound present, No gallops present (Cardio), No clicks present (Cardio), No murmurs present (Cardio) and Peripheral pulses 2+ throughout RATE: regular rate RHYTHM: regular rhythm HEART SOUNDS: S1 normal heart sound present and S2 normal heart sound present PERIPHERAL PULSES: Peripheral pulses 2+ throughout GI: COMMON NORMALS: Normal to inspection, nondistended, normoactive bowel sounds present, Soft to palpation, non-tender and no masses PALPATION: Yes Soft to palpation : COMMON NORMALS: Yes no CVA tenderness BLADDER/KIDNEY EXAM: Yes no CVA tenderness Back/Pelvis: COMMON NORMALS: no CVA tenderness Extremity: NARRATIVE EXTREMITY EXAM: Right knee?1 day postop total knee?surgical site appears to be healing well. No signs of cellulitis noted. Neuro: COMMON NORMALS: patient oriented x3 GAIT: Yes Normal gait present Skin: GENERAL SKIN EXAM: dry skin Course Vital Signs: Vital signs: Vital Signs Temperature 98.0 F 08/22/22 20:15 Pulse Rate 63 08/22/22 20:15 Respiratory Rate 18 08/22/22 20:15 Blood Pressure 130/72 08/22/22 20:15 Pulse Oximetry 95 08/22/22 20:15 Oxygen Delivery Me thod Nasal Cannula 08/22/22 14:23 Oxygen Flow Rate 2 08/22/22 14:23 MDM - Dizziness Medical Decision Making Patient is a 67-year-old male who comes to the ED after near syncopal episode. Patient had right total knee replacement done by Dr. Elias yesterday August 21. He was scheduled for discharge today and while trying to get patient transferred into his vehicle he had an episode where he became diaphoretic, dizziness and lightheaded. Patient says he felt like he was close to passing out but he did not. The nursing staff then sent patient here to the ED for evaluation. Patient denies any fevers, shortness of breath or chest pain. He denies passing out or falling and hitting his head. He states that his right knee pain is currently a 7 out of 10 and at the time when they were trying to transfer him into the vehicle it was a 10 out of 10. Patient feels like he was discharged home too early and was not ready to go home yet. Patient feels like he is unsure if he will be able to manage at home and his is unsure if she can help take care of him at home currently. Here in the ED he says his symptoms of diaphoresis, lightheadedness and dizziness have resolved. Patient on 2 L of oxygen here in the ED his O2 sats at 98%. Pulse has been low around 50-53 but the rest of his vitals are stable. Exam of patient is benign and his right knee surgical site appears to be healing well and no signs of cellulitis noted. White count was 16.2 and his potassium was 5.9 rest of his CBC and CMP were unremarkable. Chest x-ray showed no significant changes from previous. Baseline troponin was 6 and 2-hour Trop is pending. EKG showed some sinus bradycardia but no ST segment elevation or depression seen. I discussed patient case with Dr. Caba and he reviewed labs and chest x-ray and he was concerned about a widened mediastinum and hyperkalemia. He wanted patient to have a CTA of his chest abdomen. Kayexalate and calcium chloride was given to patient per Dr. Caba. Repeat potassium is pending. CTA of chest and abdomen pending along with 2-hour Trope pending as well. Lab Data I reviewed the patient's lab results. 08/22/22 14:10 08/22/22 15:57 Radiology Impressions Chest X-Ray 08/22/22 12:46 Impression: Atherosclerosis. No significant change from previous Chest/Abdomen/Pelvis CTA 08/22/22 15:21 IMPRESSION: 1. Ascending thoracic aorta dilated to 3.9 cm without dissection or rupture. Fusiform 3.4 cm infrarenal abdominal aortic aneurysm without rupture. 2. Coronary artery atherosclerotic calcifications. 3. Bibasilar atelectasis. 4. Mild cardiomegaly. 5. Hepatic steatosis. 6. Bilateral renal cysts, negative for follow-up advised. 7. Constipation. 8. Small umbilical hernia containing omentum without bowel. Laboratory Results WBC 16.2 10^3/uL (4.0-10.0) H 08/22/22 14:10 RBC 4.67 10^6/uL (4.1-5.3) 08/22/22 14:10 Hgb 13.3 g/dL (11.7-16.6) 08/22/22 14:10 Hct 42.6 % (42.0-52.0) 08/22/22 14:10 MCV 91.2 fl (80-94) 08/22/22 14:10 MCH 28.5 pg (28.0-34.0) 08/22/22 14:10 MCHC 31.2 g/dL (30.0-36.0) 08/22/22 14:10 RDW 14.0 % (12.1-15.1) 08/22/22 14:10 Plt Count 228 10^3/cmm (130-400) 08/22/22 14:10 MPV 12.1 fL (7.4-10.4) H 08/22/22 14:10 Neut % (Auto) 84.1 % 08/22/22 14:10 Lymph % (Auto) 7.2 % 08/22/22 14:10 Garza % (Auto) 7.2 % 08/22/22 14:10 Eos % (Auto) 0.5 % 08/22/22 14:10 Baso % (Auto) 0.4 % 08/22/22 14:10 Neut # (Auto) 13.60 10^3/uL (1.8-7.7) H 08/22/22 14:10 Lymph # (Auto) 1.2 10^3/uL (0.8-4.8) 08/22/22 14:10 Garza # (Auto) 1.2 10^3/uL (0.2-0.9) H 08/22/22 14:10 Eos # (Auto) 0.1 10^3/uL (0.0-0.8) 08/22/22 14:10 Baso # (Auto) 0.1 10^3/uL (0.0-0.1) 08/22/22 14:10 Nucleated RBC % (auto) 0 % 08/22/22 14:10 Nucleated RBCs # 0.0 /100WBC 08/22/22 14:10 Sodium 137 mmol/L (136-145) 08/22/22 14:10 Potassium 4.5 mmol/L (3.5-5.1) 08/22/22 15:57 Chloride 104 mmol/L (98-107) 08/22/22 14:10 Carbon Dioxide 24 mmol/L (22-29) 08/22/22 14:10 Anion Gap 14.9 (5-19) 08/22/22 14:10 BUN 12 mg/dL (8-23) 08/22/22 14:10 Creatinine 0.8 mg/dL (0.7-1.2) 08/22/22 14:10 GFR Calculation 96.4 mL/min (90-130) 08/22/22 14:10 Glucose 190 mg/dL (65-115) H 08/22/22 14:10 POC Glucose 194 mg/dL (70-110) H 08/22/22 13:50 Calculated Osmolality 289 mOsm/kg (285-295) 08/22/22 14:10 Calcium 8.8 mg/dL (8.5-10.5) 08/22/22 14:10 Total Bilirubin 0.6 mg/dL (0.15-1.2) 08/22/22 14:10 AST 20 U/L (0-40) 08/22/22 14:10 ALT 27 U/L (0-41) 08/22/22 14:10 Alkaline Phosphatase 68 U/L (40-130) 08/22/22 14:10 Troponin T Baseline 6 ng/L (0-15) 08/22/22 14:10 Troponin T 120 Minute 6.00 ng/L (0-15) 08/22/22 15:57 Delta Troponin T 0 ABS# (0-10) 08/22/22 15:57 Total Protein 6.3 g/dL (6.6-8.7) L 08/22/22 14:10 Albumin 3.7 g/dL (3.5-5.2) 08/22/22 14:10 Globulin 2.6 g/dL (1.3-4.6) 08/22/22 14:10 EKG Data EKG 1: EKG interpretation date: 08/22/22 Interpretation: 53 bpm, sinus bradycardia, no ST segment ovation or depression seen. No spiked T waves. Dr. Caba reviewed EKGs and agreed with findings. Discharge Plan Discharge Patient Disposition: Home Clinical Impression: Near syncope Condition: Stable Prescriptions: No Action nitroglycerin 0.4 mg tablet, sublingual 0.4 mg sublingual Q5M PRN (Reason: Chest Pain) Rx Instructions: do not exceed 3 doses per episode aspirin [Adult Aspirin Regimen] 81 mg tablet,delayed release (DR/EC) 81 mg PO DAILY prednisone 20 mg tablet 20 mg PO .AM 5 Days Qty: 5 0RF albuterol sulfate [Ventolin HFA] 90 mcg/actuation HFA aerosol inhaler 2 puff inhalation Q6H PRN (Reason: Shortness Of Breath) Qty: 8.5 5RF furosemide 20 mg tablet 20 mg PO DAILY 90 Days Qty: 90 1RF pantoprazole 20 mg tablet,delayed release (DR/EC) 20 mg PO BEDTIME 90 Days Qty: 90 1RF rosuvastatin 20 mg tablet 20 mg PO BEDTIME 90 Days Qty: 90 3RF clotrimazole 1 % cream 1 applic topical BID 14 Days Qty: 45 2RF (DME) Blood Glucose Test Strip See Rx Instructions .ROUTE .MEDSUPPLY Qty: 50 11RF Rx Instructions: Brand/type to go with meter per insurance coverage (DME) lancets Misc See Rx Instructions .ROUTE .MEDSUPPLY Qty: 100 11RF Rx Instructions: For use with glucose meter, brand/type per insurance (DME) blood-glucose meter [Blood Glucose Monitoring] Kit See Rx Instructions .ROUTE .MEDSUPPLY Qty: 1 0RF Rx Instructions: Brand/type per insurance coverage potassium chloride 10 mEq tablet extended release See Rx Instructions .ROUTE .COMPLEX Qty: 90 0RF Dose Instruction: TAKE 1 TABLET BY MOUTH EVERY DAY AT BEDTIME Rx Instructions: TAKE 1 TABLET BY MOUTH EVERY DAY AT BEDTIME melatonin 5 mg Tablet 5 - 10 mg PO BEDTIME metoprolol tartrate 100 mg tablet 100 mg PO BID lisinopril 40 mg tablet 20 mg PO DAILY metformin 500 mg tablet extended release 24 hr 500 mg PO DAILY acetaminophen 500 mg Tablet 1,000 mg PO Q8H 14 Days Qty: 84 0RF Eliquis 5 mg Tablet 2.5 mg PO BID 10 Days Qty: 10 0RF celecoxib 200 mg Capsule 200 mg PO Q12H 14 Days Qty: 28 0RF gabapentin 300 mg Capsule 300 mg PO BID@0900,2100 7 Days Qty: 14 0RF oxycodone 5 mg Tablet 5 mg PO Q4H PRN (Reason: Moderate Pain) 7 Days Qty: 40 0RF Discharge Orders: Discharge ED (Routine); Ordered 08/22/22 Ordered By: Lucia Cloud Referrals: Kaur Bay MD [Primary Care Provider] - 1-3 days Discharge Diet: Advance as tolerated Discharge Activity: Resume usual activity Patient Instructions: Near Syncope (ED) Coding Level of Care Code ED Trailer Driver for Chg Fwd Documented by User: Lucia Cloud MD 08/22/22 19:26 HPI - Dizziness General: Chief Complaint: Dizziness Stated Complaint: feels like passing out Time Seen by Provider: 08/22/22 12:28 PFSH ED PFSH: Medical History CAD (coronary artery disease) of bypass graft S/P [place], stenting and bypass Chest pain COPD (chronic obstructive pulmonary disease) CVA (cerebral vascular accident) GERD (gastroesophageal reflux disease) History of stroke Hypertension Surgical History History of hernia repair History of right knee surgery 1977 Hx of CABG 2014 Family History Father Cancer Mother Dementia Diabetes Social History Smoking and tobacco status: former smoker Quit status (tobacco): has quit using tobacco Year quit tobacco: 2008 Former quit date comment: 1ppd x 35 years Course Vital Signs: Vital signs: Vital Signs Temperature 98.0 F 08/22/22 20:15 Pulse Rate 63 08/22/22 20:15 Respiratory Rate 18 08/22/22 20:15 Blood Pressure 130/72 08/22/22 20:15 Pulse Oximetry 95 08/22/22 20:15 Oxygen Delivery Me thod Nasal Cannula 08/22/22 14:23 Oxygen Flow Rate 2 08/22/22 14:23 MDM - Dizziness Medical Decision Making Patient is a 67-year-old male who comes to the ED after near syncopal episode. Patient had right total knee replacement done by Dr. Elias yesterday August 21. He was scheduled for discharge today and while trying to get patient transferred into his vehicle he had an episode where he became diaphoretic, dizziness and lightheaded. Patient says he felt like he was close to passing out but he did not. The nursing staff then sent patient here to the ED for evaluation. Patient denies any fevers, shortness of breath or chest pain. He denies passing out or falling and hitting his head. He states that his right knee pain is currently a 7 out of 10 and at the time when they were trying to transfer him into the vehicle it was a 10 out of 10. Patient feels like he was discharged home too early and was not ready to go home yet. Patient feels like he is unsure if he will be able to manage at home and his is unsure if she can help take care of him at home currently. Here in the ED he says his symptoms of diaphoresis, lightheadedness and dizziness have resolved. Patient on 2 L of oxygen here in the ED his O2 sats at 98%. Pulse has been low around 50-53 but the rest of his vitals are stable. Exam of patient is benign and his right knee surgical site appears to be healing well and no signs of cellulitis noted. White count was 16.2 and his potassium was 5.9 rest of his CBC and CMP were unremarkable. Chest x-ray showed no significant changes from previous. Baseline troponin was 6 and 2-hour Trop is pending. EKG showed some sinus bradycardia but no ST segment elevation or depression seen. I discussed patient case with Dr. Caba and he reviewed labs and chest x-ray and he was concerned about a widened mediastinum and hyperkalemia. He wanted patient to have a CTA of his chest abdomen. Kayexalate and calcium chloride was given to patient per Dr. Caba. Repeat potassium is pending. CTA of chest and abdomen pending along with 2-hour Trope pending as well. Patient presented here with a near syncopal event after leaving the hospital today he is well-appearing here CT shows no signs of PE he does have an aneurysm he knows about. No signs of dissection he is able ambulate here he feels improved he is stable for discharge. Lab Data 08/22/22 14:10 08/22/22 15:57 Radiology Impressions Chest X-Ray 08/22/22 12:46 Impression: Atherosclerosis. No significant change from previous Chest/Abdomen/Pelvis CTA 08/22/22 15:21 IMPRESSION: 1. Ascending thoracic aorta dilated to 3.9 cm without dissection or rupture. Fusiform 3.4 cm infrarenal abdominal aortic aneurysm without rupture. 2. Coronary artery atherosclerotic calcifications. 3. Bibasilar atelectasis. 4. Mild cardiomegaly. 5. Hepatic steatosis. 6. Bilateral renal cysts, negative for follow-up advised. 7. Constipation. 8. Small umbilical hernia containing omentum without bowel. Laboratory Results WBC 16.2 10^3/uL (4.0-10.0) H 08/22/22 14:10 RBC 4.67 10^6/uL (4.1-5.3) 08/22/22 14:10 Hgb 13.3 g/dL (11.7-16.6) 08/22/22 14:10 Hct 42.6 % (42.0-52.0) 08/22/22 14:10 MCV 91.2 fl (80-94) 08/22/22 14:10 MCH 28.5 pg (28.0-34.0) 08/22/22 14:10 MCHC 31.2 g/dL (30.0-36.0) 08/22/22 14:10 RDW 14.0 % (12.1-15.1) 08/22/22 14:10 Plt Count 228 10^3/cmm (130-400) 08/22/22 14:10 MPV 12.1 fL (7.4-10.4) H 08/22/22 14:10 Neut % (Auto) 84.1 % 08/22/22 14:10 Lymph % (Auto) 7.2 % 08/22/22 14:10 Garza % (Auto) 7.2 % 08/22/22 14:10 Eos % (Auto) 0.5 % 08/22/22 14:10 Baso % (Auto) 0.4 % 08/22/22 14:10 Neut # (Auto) 13.60 10^3/uL (1.8-7.7) H 08/22/22 14:10 Lymph # (Auto) 1.2 10^3/uL (0.8-4.8) 08/22/22 14:10 Garza # (Auto) 1.2 10^3/uL (0.2-0.9) H 08/22/22 14:10 Eos # (Auto) 0.1 10^3/uL (0.0-0.8) 08/22/22 14:10 Baso # (Auto) 0.1 10^3/uL (0.0-0.1) 08/22/22 14:10 Nucleated RBC % (auto) 0 % 08/22/22 14:10 Nucleated RBCs # 0.0 /100WBC 08/22/22 14:10 Sodium 137 mmol/L (136-145) 08/22/22 14:10 Potassium 4.5 mmol/L (3.5-5.1) 08/22/22 15:57 Chloride 104 mmol/L (98-107) 08/22/22 14:10 Carbon Dioxide 24 mmol/L (22-29) 08/22/22 14:10 Anion Gap 14.9 (5-19) 08/22/22 14:10 BUN 12 mg/dL (8-23) 08/22/22 14:10 Creatinine 0.8 mg/dL (0.7-1.2) 08/22/22 14:10 GFR Calculation 96.4 mL/min (90-130) 08/22/22 14:10 Glucose 190 mg/dL (65-115) H 08/22/22 14:10 POC Glucose 194 mg/dL (70-110) H 08/22/22 13:50 Calculated Osmolality 289 mOsm/kg (285-295) 08/22/22 14:10 Calcium 8.8 mg/dL (8.5-10.5) 08/22/22 14:10 Total Bilirubin 0.6 mg/dL (0.15-1.2) 08/22/22 14:10 AST 20 U/L (0-40) 08/22/22 14:10 ALT 27 U/L (0-41) 08/22/22 14:10 Alkaline Phosphatase 68 U/L (40-130) 08/22/22 14:10 Troponin T Baseline 6 ng/L (0-15) 08/22/22 14:10 Troponin T 120 Minute 6.00 ng/L (0-15) 08/22/22 15:57 Delta Troponin T 0 ABS# (0-10) 08/22/22 15:57 Total Protein 6.3 g/dL (6.6-8.7) L 08/22/22 14:10 Albumin 3.7 g/dL (3.5-5.2) 08/22/22 14:10 Globulin 2.6 g/dL (1.3-4.6) 08/22/22 14:10 Discharge Plan Discharge Patient Disposition: Home Clinical Impression: Near syncope Condition: Stable Prescriptions: No Action nitroglycerin 0.4 mg tablet, sublingual 0.4 mg sublingual Q5M PRN (Reason: Chest Pain) Rx Instructions: do not exceed 3 doses per episode aspirin [Adult Aspirin Regimen] 81 mg tablet,delayed release (DR/EC) 81 mg PO DAILY prednisone 20 mg tablet 20 mg PO .AM 5 Days Qty: 5 0RF albuterol sulfate [Ventolin HFA] 90 mcg/actuation HFA aerosol inhaler 2 puff inhalation Q6H PRN (Reason: Shortness Of Breath) Qty: 8.5 5RF furosemide 20 mg tablet 20 mg PO DAILY 90 Days Qty: 90 1RF pantoprazole 20 mg tablet,delayed release (DR/EC) 20 mg PO BEDTIME 90 Days Qty: 90 1RF rosuvastatin 20 mg tablet 20 mg PO BEDTIME 90 Days Qty: 90 3RF clotrimazole 1 % cream 1 applic topical BID 14 Days Qty: 45 2RF (DME) Blood Glucose Test Strip See Rx Instructions .ROUTE .MEDSUPPLY Qty: 50 11RF Rx Instructions: Brand/type to go with meter per insurance coverage (DME) [place] [facility] [place] Rx Instructions .ROUTE .MEDSUPPLY Qty: 100 11RF Rx Instructions: For use with glucose meter, brand/type per insurance (DME) blood-glucose meter [Blood Glucose Monitoring] Kit See Rx Instructions .ROUTE .MEDSUPPLY Qty: 1 0RF Rx Instructions: Brand/type per insurance coverage potassium chloride 10 mEq tablet extended release See Rx Instructions .ROUTE .COMPLEX Qty: 90 0RF Dose Instruction: TAKE 1 TABLET BY MOUTH EVERY DAY AT BEDTIME Rx Instructions: TAKE 1 TABLET BY MOUTH EVERY DAY AT BEDTIME melatonin 5 mg Tablet 5 - 10 mg PO BEDTIME metoprolol tartrate 100 mg tablet 100 mg PO BID lisinopril 40 mg tablet 20 mg PO DAILY metformin 500 mg tablet extended release 24 hr 500 mg PO DAILY acetaminophen 500 mg Tablet 1,000 mg PO Q8H 14 Days Qty: 84 0RF Eliquis 5 mg Tablet 2.5 mg PO BID 10 Days Qty: 10 0RF celecoxib 200 mg Capsule 200 mg PO Q12H 14 Days Qty: 28 0RF gabapentin 300 mg Capsule 300 mg PO BID@0900,2100 7 Days Qty: 14 0RF oxycodone 5 mg Tablet 5 mg PO Q4H PRN (Reason: Moderate Pain) 7 Days Qty: 40 0RF Discharge Orders: Discharge ED (Routine); Ordered 08/22/22 Ordered By: Lucia Cloud Referrals: Kaur Bay MD [Primary Care Provider] - 1-3 days Discharge Diet: Advance as tolerated Discharge Activity: Resume usual activity Patient Instructions: Near Syncope (ED) Coding Level of Care Code ED Trailer Driver for Chg Fwd Documented by User: Jamaal Caba DO 08/24/22 05:49 HPI - Dizziness General: Chief Complaint: Dizziness Stated Complaint: feels like passing out Time Seen by Provider: 08/22/22 12:28 PFSH ED PFSH: Medical History CAD (coronary artery disease) of bypass graft S/P [place], stenting and bypass Chest pain COPD (chronic obstructive pulmonary disease) CVA (cerebral vascular accident) GERD (gastroesophageal reflux disease) History of stroke Hypertension Surgical History History of hernia repair History of right knee surgery 1976 Hx of CABG 2014 Family History Father Cancer Mother Dementia Diabetes Social History Smoking and tobacco status: former smoker Quit status (tobacco): has quit using tobacco Year quit tobacco: 2008 Former quit date comment: 1ppd x 35 years Course Vital Signs: Vital signs: Vital Signs Temperature 98.0 F 08/22/22 20:15 Pulse Rate 63 08/22/22 20:15 Respiratory Rate 18 08/22/22 20:15 Blood Pressure 130/72 08/22/22 20:15 Pulse Oximetry 95 08/22/22 20:15 Oxygen Delivery Me thod Nasal Cannula 08/22/22 14:23 Oxygen Flow Rate 2 08/22/22 14:23 MDM - Dizziness Medical Decision Making Patient is a 67-year-old male who comes to the ED after near syncopal episode. Patient had right total knee replacement done by Dr. Elias yesterday August 21. He was scheduled for discharge today and while trying to get patient transferred into his vehicle he had an episode where he became diaphoretic, dizziness and lightheaded. Patient says he felt like he was close to passing out but he did not. The nursing staff then sent patient here to the ED for evaluation. Patient denies any fevers, shortness of breath or chest pain. He denies passing out or falling and hitting his head. He states that his right knee pain is currently a 7 out of 10 and at the time when they were trying to transfer him into the vehicle it was a 10 out of 10. Patient feels like he was discharged home too early and was not ready to go home yet. Patient feels like he is unsure if he will be able to manage at home and his is unsure if she can help take care of him at home currently. Here in the ED he says his symptoms of diaphoresis, lightheadedness and dizziness have resolved. Patient on 2 L of oxygen here in the ED his O2 sats at 98%. Pulse has been low around 50-53 but the rest of his vitals are stable. Exam of patient is benign and his right knee surgical site appears to be healing well and no signs of cellulitis noted. White count was 16.2 and his potassium was 5.9 rest of his CBC and CMP were unremarkable. Chest x-ray showed no significant changes from previous. Baseline troponin was 6 and 2-hour Trop is pending. EKG showed some sinus bradycardia but no ST segment elevation or depression seen. I discussed patient case with Dr. Caba and he reviewed labs and chest x-ray and he was concerned about a widened mediastinum and hyperkalemia. He wanted patient to have a CTA of his chest abdomen. Kayexalate and calcium chloride was given to patient per Dr. Caba. Repeat potassium is pending. CTA of chest and abdomen pending along with 2-hour Trope pending as well. Patient presented here with a near syncopal event after leaving the hospital today he is well-appearing here CT shows no signs of PE he does have an aneurysm he knows about. No signs of dissection he is able ambulate here he feels improved he is stable for discharge. Chart reviewed and patient discussed with midlevel. Agree with assessment and plan. Lab Data 08/22/22 14:10 08/22/22 15:57 Radiology Impressions Chest X-Ray 08/22/22 12:46 Impression: Atherosclerosis. No significant change from previous Chest/Abdomen/Pelvis CTA 08/22/22 15:21 IMPRESSION: 1. Ascending thoracic aorta dilated to 3.9 cm without dissection or rupture. Fusiform 3.4 cm infrarenal abdominal aortic aneurysm without rupture. 2. Coronary artery atherosclerotic calcifications. 3. Bibasilar atelectasis. 4. Mild cardiomegaly. 5. Hepatic steatosis. 6. Bilateral renal cysts, negative for follow-up advised. 7. Constipation. 8. Small umbilical hernia containing omentum without bowel. Laboratory Results WBC 16.2 10^3/uL (4.0-10.0) H 08/22/22 14:10 RBC 4.67 10^6/uL (4.1-5.3) 08/22/22 14:10 Hgb 13.3 g/dL (11.7-16.6) 08/22/22 14:10 Hct 42.6 % (42.0-52.0) 08/22/22 14:10 MCV 91.2 fl (80-94) 08/22/22 14:10 MCH 28.5 pg (28.0-34.0) 08/22/22 14:10 MCHC 31.2 g/dL (30.0-36.0) 08/22/22 14:10 RDW 14.0 % (12.1-15.1) 08/22/22 14:10 Plt Count 228 10^3/cmm (130-400) 08/22/22 14:10 MPV 12.1 fL (7.4-10.4) H 08/22/22 14:10 Neut % (Auto) 84.1 % 08/22/22 14:10 Lymph % (Auto) 7.2 % 08/22/22 14:10 Garza % (Auto) 7.2 % 08/22/22 14:10 Eos % (Auto) 0.5 % 08/22/22 14:10 Baso % (Auto) 0.4 % 08/22/22 14:10 Neut # (Auto) 13.60 10^3/uL (1.8-7.7) H 08/22/22 14:10 Lymph # (Auto) 1.2 10^3/uL (0.8-4.8) 08/22/22 14:10 Garza # (Auto) 1.2 10^3/uL (0.2-0.9) H 08/22/22 14:10 Eos # (Auto) 0.1 10^3/uL (0.0-0.8) 08/22/22 14:10 Baso # (Auto) 0.1 10^3/uL (0.0-0.1) 08/22/22 14:10 Nucleated RBC % (auto) 0 % 08/22/22 14:10 Nucleated RBCs # 0.0 /100WBC 08/22/22 14:10 Sodium 137 mmol/L (136-145) 08/22/22 14:10 Potassium 4.5 mmol/L (3.5-5.1) 08/22/22 15:57 Chloride 104 mmol/L (98-107) 08/22/22 14:10 Carbon Dioxide 24 mmol/L (22-29) 08/22/22 14:10 Anion Gap 14.9 (5-19) 08/22/22 14:10 BUN 12 mg/dL (8-23) 08/22/22 14:10 Creatinine 0.8 mg/dL (0.7-1.2) 08/22/22 14:10 GFR Calculation 96.4 mL/min (90-130) 08/22/22 14:10 Glucose 190 mg/dL (65-115) H 08/22/22 14:10 POC Glucose 194 mg/dL (70-110) H 08/22/22 13:50 Calculated Osmolality 289 mOsm/kg (285-295) 08/22/22 14:10 Calcium 8.8 mg/dL (8.5-10.5) 08/22/22 14:10 Total Bilirubin 0.6 mg/dL (0.15-1.2) 08/22/22 14:10 AST 20 U/L (0-40) 08/22/22 14:10 ALT 27 U/L (0-41) 08/22/22 14:10 Alkaline Phosphatase 68 U/L (40-130) 08/22/22 14:10 Troponin T Baseline 6 ng/L (0-15) 08/22/22 14:10 Troponin T 120 Minute 6.00 ng/L (0-15) 08/22/22 15:57 Delta Troponin T 0 ABS# (0-10) 08/22/22 15:57 Total Protein 6.3 g/dL (6.6-8.7) L 08/22/22 14:10 Albumin 3.7 g/dL (3.5-5.2) 08/22/22 14:10 Globulin 2.6 g/dL (1.3-4.6) 08/22/22 14:10 Discharge Plan Discharge Patient Disposition: Home Clinical Impression: Near syncope Condition: Stable Prescriptions: No Action nitroglycerin 0.4 mg tablet, sublingual 0.4 mg sublingual Q5M PRN (Reason: Chest Pain) Rx Instructions: do not exceed 3 doses per episode aspirin [Adult Aspirin Regimen] 81 mg tablet,delayed release (DR/EC) 81 mg PO DAILY prednisone 20 mg tablet 20 mg PO .AM 5 Days Qty: 5 0RF albuterol sulfate [Ventolin HFA] 90 mcg/actuation HFA aerosol inhaler 2 puff inhalation Q6H PRN (Reason: Shortness Of Breath) Qty: 8.5 5RF furosemide 20 mg tablet 20 mg PO DAILY 90 Days Qty: 90 1RF pantoprazole 20 mg tablet,delayed release (DR/EC) 20 mg PO BEDTIME 90 Days Qty: 90 1RF rosuvastatin 20 mg tablet 20 mg PO BEDTIME 90 Days Qty: 90 3RF clotrimazole 1 % cream 1 applic topical BID 14 Days Qty: 45 2RF (DME) Blood Glucose Test Strip See Rx Instructions .ROUTE .MEDSUPPLY Qty: 50 11RF Rx Instructions: Brand/type to go with meter per insurance coverage (DME) [place] [facility] [place] Instructions .ROUTE .MEDSUPPLY Qty: 100 11RF Rx Instructions: For use with glucose meter, brand/type per insurance (DME) blood-glucose meter [Blood Glucose Monitoring] Kit See Rx Instructions .ROUTE .MEDSUPPLY Qty: 1 0RF Rx Instructions: Brand/type per insurance coverage potassium chloride 10 mEq tablet extended release See Rx Instructions .ROUTE .COMPLEX Qty: 90 0RF Dose Instruction: TAKE 1 TABLET BY MOUTH EVERY DAY AT BEDTIME Rx Instructions: TAKE 1 TABLET BY MOUTH EVERY DAY AT BEDTIME melatonin 5 mg Tablet 5 - 10 mg PO BEDTIME metoprolol tartrate 100 mg tablet 100 mg PO BID lisinopril 40 mg tablet 20 mg PO DAILY metformin 500 mg tablet extended release 24 hr 500 mg PO DAILY acetaminophen 500 mg Tablet 1,000 mg PO Q8H 14 Days Qty: 84 0RF Eliquis 5 mg Tablet 2.5 mg PO BID 10 Days Qty: 10 0RF celecoxib 200 mg Capsule 200 mg PO Q12H 14 Days Qty: 28 0RF gabapentin 300 mg Capsule 300 mg PO BID@0900,2100 7 Days Qty: 14 0RF oxycodone 5 mg Tablet 5 mg PO Q4H PRN (Reason: Moderate Pain) 7 Days Qty: 40 0RF Discharge Orders: Discharge ED (Routine); Ordered 08/22/22 Ordered By: Lucia Cloud Referrals: Kaur Bay MD [Primary Care Provider] - 1-3 days Discharge Diet: Advance as tolerated Discharge Activity: Resume usual activity Patient Instructions: Near Syncope (ED) Coding Level of Care Code ED Trailer Driver for Artemio Carr
--- NOTE | 2022-08-22 12:48 | PC.NURSE ---
took over care of this patient
--- NOTE | 2022-08-22 13:12 | ECG_ITS ---
[facility] Test Date: 2022-08-22 Pat Name: Gautam Mcneil Department: Room: Gender: Male Web Services Professional: : 1955 Requested By: Greg Altman Order Number: [id number] Karol MD: Jamari Moon M.D. Measurements Intervals [place] Rate: 53 P: 0 [place]: 0 QRS: 52 QRSD: 105 T: 83 QT: 409 QTc: 387 Interpretive Statements SINUS RHYTHM WITH SINUS ARRHYTHMIA NONSPECIFIC T-WAVE ABNORMALITY Compared to ECG 08/11/2022 10:23:31 Intraventricular conduction delay no longer present T-wave abnormality still present Electronically Signed On 08-23-2022 9:47:46 CDT by Jamari Moon M.D. [id number]
[2022-08-22] MEDS: sodium chloride 0.9% 500 ML 999 ML IV (13:13)
[2022-08-22 13:53] LABS: Glucose Point of Care 194 mg/dL (70-110)
[2022-08-22 14:40] LABS: Basophils # 0.1 10^3/uL (0.0-0.1); Basophils % 0.4 %; Eosinophils # 0.1 10^3/uL (0.0-0.8); Eosinophils % 0.5 %; Hematocrit 42.6 % (42.0-52.0); Hemoglobin 13.3 g/dL (11.7-16.6); Lymphocytes # 1.2 10^3/uL (0.8-4.8); Lymphocytes % 7.2 %; Mean Corpuscular HGB Conc 31.2 g/dL (30.0-36.0); Mean Corpuscular Hemoglobin 28.5 pg (28.0-34.0); Mean Corpuscular Volume 91.2 fl (80-94); Mean Platelet Volume 12.1 fL (7.4-10.4); Monocytes # 1.2 10^3/uL (0.2-0.9); Monocytes % 7.2 %; Neutrophils % 84.1 %; Nucleated Red Blood Cells % 0 %; Platelet Count 228 10^3/cmm (130-400); Red Blood Count 4.67 10^6/uL (4.1-5.3); White Blood Count 16.2 10^3/uL (4.0-10.0)
[2022-08-22 14:56] LABS: Troponin(5th) Baseline 6 ng/L (0-15)
[2022-08-22 15:00] LABS: Alanine Aminotransferase 27 U/L (0-41); Albumin Level 3.7 g/dL (3.5-5.2); Alkaline Phosphatase 68 U/L (40-130); Anion Gap 14.9 (5-19); Aspartate Amino Transferase 20 U/L (0-40); Blood Urea Nitrogen 12 mg/dL (8-23); Calcium 8.8 mg/dL (8.5-10.5); Carbon Dioxide 24 mmol/L (22-29); Chloride 104 mmol/L (98-107); Globulin 2.6 g/dL (1.3-4.6); Glomerular Filtration Rate 96.4 mL/min (90-130); Glucose 190 mg/dL (65-115); Osmolality Calculated 289 mOsm/kg (285-295); Potassium 5.9 mmol/L (3.5-5.1); Sodium 137 mmol/L (136-145); Total Bilirubin 0.6 mg/dL (0.15-1.2); Total Protein 6.3 g/dL (6.6-8.7)
--- NOTE | 2022-08-22 15:06 | ECG_ITS ---
[facility] Test Date: 2022-08-22 Pat Name: Gautam Mcneil Department: Room: Gender: Male Product Development: : 1955 Requested By: Greg Altman Order Number: [id number] Roberson MD: Avril Luna M.D. Measurements Intervals [place] Rate: 54 P: 0 DC: 0 QRS: 57 QRSD: 112 T: 90 QT: 428 QTc: 407 Interpretive Statements SINUS BRADYCARDIA WITH PAC'S MODERATE INTRAVENTRICULAR CONDUCTION DELAY [110+ ms QRS DURATION] NONSPECIFIC ST & T-WAVE ABNORMALITY ABNORMAL RHYTHM ECG Compared to ECG 08/22/2022 13:12:25 Intraventricular conduction delay now present T-wave abnormality still present Electronically Signed On 08-23-2022 0:37:20 CDT by Avril Luna M.D. [email or web address] [email or web address] [email or web address]. [facility].[email or web address]/[id number]
--- NOTE | 2022-08-22 15:21 | CTR_ITS ---
PROCEDURE INFORMATION: Exam: CTA Abdomen and Pelvis With Contrast Exam date and time: 08/22/2022 5:42 PM Age: 67 years old Clinical indication: Other: Syncope; Additional info: Near syncopal episode, widened mediastinum, patient needing 1 L of o2 to keep stats TECHNIQUE: Imaging protocol: Computed tomographic angiography of the abdomen and pelvis with contrast. Exam focused on the arteries. 3D rendering (Not supervised by radiologist): MIP and/or 3D reconstructed images were created by the technologist. Radiation optimization: All CT scans at this facility use at least one of these dose optimization techniques: automated exposure control; mA and/or kV adjustment per patient size (includes targeted exams where dose is matched to clinical indication); or iterative reconstruction. Contrast material: OMNI 350; Contrast volume: 100 ml; Contrast route: INTRAVENOUS (IV); REPORTING DATA: Count of CT and Cardiac NM exams in prior 12 months: This patient has received 5 known CTs and 0 known cardiac nuclear medicine studies in the 12 months prior to the current study. COMPARISON: CT angio abdomen [id number] 02/24/2022 2:59 PM RADIATION DOSE METRICS: Total DLP (mGy-cm): 2528.66 FINDINGS: Lungs: Bibasilar atelectasis. Heart: Mild cardiomegaly. Coronary arteries: Coronary artery atherosclerotic calcifications. Aorta: Ascending thoracic aorta dilated to 3.9 cm without dissection or rupture. Fusiform 3.4 cm infrarenal abdominal aortic aneurysm without rupture. Celiac trunk and mesenteric arteries: No occlusion or significant stenosis. Renal arteries: No occlusion or significant stenosis. Right iliac arteries: No occlusion or significant stenosis. Left iliac arteries: No occlusion or significant stenosis. Liver: Hepatic steatosis. Gallbladder and bile ducts: Unremarkable. No calcified stones. No ductal dilation. Pancreas: Unremarkable. No mass. No ductal dilation. Spleen: Unremarkable. No splenomegaly. Adrenal glands: Unremarkable. No mass. Kidneys and ureters: Bilateral renal cysts, negative for follow-up advised. Stomach and bowel: Constipation. Appendix: No evidence of appendicitis. Intraperitoneal space: Unremarkable. No free air. No significant fluid collection. Lymph nodes: Unremarkable. No enlarged lymph nodes. Urinary bladder: Unremarkable. No mass. Reproductive: Unremarkable as visualized. Bones/joints: Bilateral chronic L5 pars interarticularis defects. Soft tissues: Small umbilical hernia containing omentum without bowel. CT/CT ang ches abdpel [id number] IMPRESSION: 1. Ascending thoracic aorta dilated to 3.9 cm without dissection or rupture. Fusiform 3.4 cm infrarenal abdominal aortic aneurysm without rupture. 2. Coronary artery atherosclerotic calcifications. 3. Bibasilar atelectasis. 4. Mild cardiomegaly. 5. Hepatic steatosis. 6. Bilateral renal cysts, negative for follow-up advised. 7. Constipation. 8. Small umbilical hernia containing omentum without bowel.
[2022-08-22] MEDS: calcium chloride 10% Syr 10 mL 1 GM IVP (15:30)
[2022-08-22] MEDS: sodium polystyrene sulfonate 15 gm/60 mL Btl PO (15:30)
[2022-08-22] MEDS: morphine 4 mg/mL SDV 1 mL 2 MG IVP (17:15)
[2022-08-22] MEDS: ondansetron 2 mg/ML SDV 2 mL 4 MG IVP (17:16)
[2022-08-22] MEDS: diphenhydrAMINE 50 mg/mL SDV 1mL IVP (17:26)
[2022-08-22 17:28] LABS: Potassium 4.5 mmol/L (3.5-5.1)
[2022-08-22 17:30] LABS: Troponin 5 2HR Delta 0 ABS# (0-10)
[2022-08-22] MEDS: iohexol 350 mg/mL 500 mL Btl (per mL) IV (17:49)
--- NOTE | 2022-08-22 18:47 | ECG_ITS ---
[facility] Test Date: 2022-08-22 Pat Name: Gautam Mcneil Department: Room: Gender: Male All Source Analyst: : 1955 Requested By: Greg Altman Order Number: [id number] Roberson MD: Avril Luna M.D. Measurements Intervals [place] Rate: 70 P: 9 AR: 184 QRS: 52 QRSD: 110 T: 89 QT: 398 QTc: 430 Interpretive Statements SINUS RHYTHM WITH MARKED SINUS ARRHYTHMIA NONSPECIFIC T-WAVE ABNORMALITY Compared to ECG 08/22/2022 15:06:29 Atrial fibrillation no longer present Intraventricular conduction delay no longer present T-wave abnormality still present Electronically Signed On 08-23-2022 0:34:28 CDT by Avril Luna M.D. [id number]
== END 2022-08-22 20:17 | disposition home or self-care (01) ==
PROVIDERS: Physician Assistant; Emergency Provider Emergency Medicine; PCP Family Medicine
DX: R55 Syncope and collapse (principal); Z79.82 Long term (current) use of aspirin; Z79.01 Long term (current) use of anticoagulants; Z87.891 Personal history of nicotine dependence; I25.10 Atherosclerotic heart disease of native coronary artery without angina pectoris; J44.9 Chronic obstructive pulmonary disease, unspecified; I25.810 Atherosclerosis of coronary artery bypass graft(s) without angina pectoris; Z86.73 Personal history of transient ischemic attack (TIA), and cerebral infarction without residual deficits; I10 Essential (primary) hypertension; Z95.1 Presence of aortocoronary bypass graft
CPT/HCPCS: 36415; 36416; 71045; 71275; 74174; 80053; 82962; 84132; 84484; 85025; 93005; 96361; 96374; 96375; 99285; J1200; J2270; J2405; J3490; J7030; Q9967

== ENCOUNTER → 2022-08-25 09:33 | Outpatient (BNVA) | payer MEDICARE, SELFPAY | PROVIDERS: PCP Family Medicine; Visit Provider Nurse Practitioner Family | DX: Z96.651 Presence of right artificial knee joint (principal) | CPT/HCPCS: 99024 ==

== ENCOUNTER 2022-09-02 06:00 | Outpatient (RCR) | payer MEDICARE, SELFPAY | END 2022-10-02 23:59 | disposition home or self-care (01) | LOC: MPT 06:00 | PROVIDERS: Visit Provider Nurse Practitioner Family | DX: Z47.1 Aftercare following joint replacement surgery (principal); Z96.651 Presence of right artificial knee joint | CPT/HCPCS: 97110; 97161; G0283 ==

== ENCOUNTER → 2022-09-11 11:25 | Outpatient (BNVA) | payer MEDICARE, SELFPAY | PROVIDERS: PCP Family Medicine; Visit Provider Nurse Practitioner Family | DX: Z96.651 Presence of right artificial knee joint (principal) | CPT/HCPCS: 73560; 73565; 99024 ==

== ENCOUNTER → 2022-09-18 11:14 | Outpatient (BNVA) | payer MEDICARE, SELFPAY | PROVIDERS: Visit Provider Family Medicine | DX: M25.512 Pain in left shoulder (principal); E78.5 Hyperlipidemia, unspecified; E11.9 Type 2 diabetes mellitus without complications; I10 Essential (primary) hypertension; M19.012 Primary osteoarthritis, left shoulder | CPT/HCPCS: 73030; 80048; 80061; 83036 ==

== ENCOUNTER 2022-10-03 06:00 | Outpatient (RCR) | payer MEDICARE, SELFPAY | END 2022-11-02 23:59 | disposition home or self-care (01) | LOC: MPT 06:00 | PROVIDERS: Visit Provider Nurse Practitioner Family | DX: Z47.1 Aftercare following joint replacement surgery (principal); Z96.651 Presence of right artificial knee joint | CPT/HCPCS: 97110; 97140; 97530; G0283 ==

== ENCOUNTER → 2022-12-27 09:56 | Outpatient (BNVA) | payer MEDICARE, SELFPAY | PROVIDERS: PCP Family Medicine; Visit Provider Family Medicine | DX: R41.3 Other amnesia (principal); I10 Essential (primary) hypertension; E11.9 Type 2 diabetes mellitus without complications; R53.83 Other fatigue | CPT/HCPCS: 80053; 82607; 83036; 84443; 85025 ==

== ENCOUNTER → 2022-12-28 13:46 | Outpatient (BNVA) | payer MEDICARE, SELFPAY | PROVIDERS: PCP Family Medicine; Visit Provider Family Medicine | DX: E11.9 Type 2 diabetes mellitus without complications (principal); R41.3 Other amnesia | CPT/HCPCS: 81000 ==

== ENCOUNTER → 2023-01-12 15:05 | Outpatient (BNVA) | payer MEDICARE, SELFPAY | PROVIDERS: PCP Family Medicine; Visit Provider Specialist | DX: G30.9 Alzheimer's disease, unspecified (principal); F02.80 Dementia in other diseases classified elsewhere, unspecified severity, without behavioral disturbance, psychotic disturbance, mood disturbance, and anxiety | CPT/HCPCS: 96116; 99205 ==

== ENCOUNTER 2023-02-15 13:04 | Outpatient (CLI) | payer MEDICARE, SELFPAY ==
--- NOTE | 2023-02-15 13:45 | MR_ITS ---
WS: [id number] MRI HEAD WITHOUT CONTRAST TECHNIQUE: Sagittal T1, T2 axial, T2 axial FLAIR, axial and coronal T1 images, axial susceptibility w eighted imaging, axial diffusion weighted images, and coronal T2 images were obtained. CLINICAL INFORMATION: G30.9 - Alzheimer's disease, unspecified COMPARISON: CT head 10/13/2021 FINDINGS: No evidence of restricted diffusion to suggest acute ischemia. Ventricular system and basal cisterns are patent. Mild small vessel changes. Moderate parenchymal volume loss worse in the frontal lobes. Normal posterior fossa. Normal vascular flow voids at the skull base. No extra-axial fluid collection s. No evidence of mass or mass effect. Paranasal sinuses and mastoid air cells are well aerated. No hemosiderin on the susceptibly weighted images. Normal optic chiasm and pituitary infundibulum. Mi ld symmetric atrophy temporal lobes and hippocampal formations. Normal cavernous sinuses. IMPRESSION: 1. No evidence of restricted diffusion to suggest acute ischemia. 2. Mild small vessel changes. Moderate parenchymal volume loss worse in the frontal lobes. 3. No hemosiderin on the susceptibly weighted images. 4. Mild symmetric atrophy temporal lobes and hippocampal formations. 5. No other suspicious findings.
--- NOTE | 2023-02-15 14:30 | CT_ITS ---
WS: [id number] LDCT LUNG CANCER SCREENING TECHNIQUE: Noncontrast CT of the chest with coronal and sagittal reformatted images. CLINICAL INFORMATION: lung cancer screening COMPARISON: 02/01/2022 DLP: 301.50 mGy.cm DIvol: Mean CTDIvol: 7.90 (mGy) All CT scans at [facility] use at least one of these dose optimization techniques: automat ed exposure control; mA and/or kV adjustment per patient size (includes targeted exams where dose is matched to clinical indication); or iterative reconstruction. FINDINGS: A few stable tiny subpleural nodules bilaterally measuring up to 3 mm. Stable 4 mm noncalcified nodul e LEFT lower lobe. No new suspicious pulmonary parenchymal abnormalities. Cardiomegaly. Prior sternotomy. Aortic calcification. Prior CABG. No mediastinal or hilar lymphadenop athy. Adrenal glands are normal. No axillary lymphadenopathy. Hypertrophic changes thoracic spine. IMPRESSION: CT/CT lung screening [id number] LUNG-RADS: 2-Benign Appearance or Behavior FOLLOW UP: 12 Month: Continue annual screening with LDCT
== END 2023-02-15 13:05 | disposition home or self-care (01) ==
LOC: RAD 13:08
PROVIDERS: PCP Family Medicine; Visit Provider Internal Medicine Pulmonary Disease
DX: Z12.2 Encounter for screening for malignant neoplasm of respiratory organs (principal); Z87.891 Personal history of nicotine dependence; F02.80 Dementia in other diseases classified elsewhere, unspecified severity, without behavioral disturbance, psychotic disturbance, mood disturbance, and anxiety; G30.9 Alzheimer's disease, unspecified; G47.33 Obstructive sleep apnea (adult) (pediatric)
CPT/HCPCS: 70551; 71271

== ENCOUNTER → 2023-04-25 12:47 | Outpatient (BNVA) | payer MEDICARE, SELFPAY | PROVIDERS: PCP Family Medicine; Visit Provider Specialist | DX: R41.3 Other amnesia (principal); G30.9 Alzheimer's disease, unspecified; F02.80 Dementia in other diseases classified elsewhere, unspecified severity, without behavioral disturbance, psychotic disturbance, mood disturbance, and anxiety | CPT/HCPCS: 99214 ==

== ENCOUNTER → 2023-05-30 09:41 | Outpatient (BNVA) | payer MEDICARE, SELFPAY | PROVIDERS: PCP Family Medicine; Visit Provider Family Medicine | DX: I10 Essential (primary) hypertension (principal); E11.9 Type 2 diabetes mellitus without complications | CPT/HCPCS: 80053; 80061; 83036; 83735 ==

== ENCOUNTER 2023-06-18 13:37 | Outpatient (CLI) | payer MEDICARE, SELFPAY ==
--- NOTE | 2023-06-18 13:39 | XR_ITS ---
WS: [id number] Exam: XR lumbar spine 2-3V* [id number] Date/Time of Exam: 06/18/2023 1:43 PM Reason For Exam: M54.50 - Low back pain, unspecified No acute fracture or dislocation. Grade 1 spondylolisthesis of L5 on S1 secondary to L5 pars defect a nd facet degeneration. Spondylosis noted. Increased lumbar lordosis. Mild dextroscoliosis. Mild aneur ysmal dilatation of the distal abdominal aorta. IMPRESSION: 1. Grade 1 spondylolisthesis of L5 on S1 secondary to L5 pars defect. Facet DJD at L4-5 and L5-S1. 2. No acute fracture. Spondylosis and mild dextroscoliosis. 3. Mild aneurysmal dilatation of the lower abdominal aorta. Further work-up with ultrasound is recomm ended.
== END 2023-06-18 13:38 | disposition home or self-care (01) ==
LOC: RAD 13:37
PROVIDERS: PCP Family Medicine; Visit Provider Family Medicine
DX: M43.17 Spondylolisthesis, lumbosacral region (principal); M47.896 Other spondylosis, lumbar region; M47.897 Other spondylosis, lumbosacral region; M54.50 Low back pain, unspecified; G89.29 Other chronic pain
CPT/HCPCS: 72100

== ENCOUNTER → 2023-07-02 13:18 | Outpatient (BNVA) | payer MEDICARE, SELFPAY | PROVIDERS: PCP Family Medicine; Visit Provider Thoracic Surgery (Cardiothoracic Vascular Surgery) | DX: I71.40 Abdominal aortic aneurysm, without rupture, unspecified (principal); G45.9 Transient cerebral ischemic attack, unspecified; I25.810 Atherosclerosis of coronary artery bypass graft(s) without angina pectoris; R07.9 Chest pain, unspecified; Z87.891 Personal history of nicotine dependence; I10 Essential (primary) hypertension | CPT/HCPCS: 99203 ==

== ENCOUNTER 2023-07-06 06:46 | Outpatient (CLI) | payer MEDICARE, SELFPAY ==
--- NOTE | 2023-07-06 07:00 | USCV_ITS ---
Gautam Mcneil Age: 67 Gender: M : 1955 Exam Date: 07/06/2023 07:33 Ordering Phys: Abdoul Gtz MD (Andy) ([facility] [place] Technologist: [place] [facility] [place]B BP: 120 / 60 HR: 70 Rhythm: Sinus Technical Quality: Adequate MEASUREMENTS (Male / Female) Normal Values 2D ECHO LVOT Diameter 2.3 cm LV Ejection Fraction MOD 2C 36.2 % LV Ejection Fraction 2C AL 35.8 % LA Diameter 4.8 cm RA Systolic Volume 4C AL 45.2 ml RA Systolic Volume 4C MOD 44.1 ml LA Sys Volume AL 56.2 cm cubed LA Sys Volume Index AL 19.1 cm cubed/m squared Aorta at Sinotubular Diameter 3.0 cm M-MODE LA Ao Ratio MM 1.6 AV Cusp Separation MM 2.3 cm DOPPLER AV Peak Velocity 115.0 cm/s LVOT Peak Velocity 108.0 cm/s AV Area Cont Eq vti 4.1 cm squared AV Area Cont Eq pk 3.9 cm squared MV Peak Velocity 78.0 cm/s MV Area PHT 3.3 cm squared Mitral E to A Ratio 0.7 TR Peak Velocity 106.0 cm/s TR Peak Gradient 4.5 mmHg TV Peak E Velocity 58.0 cm/s Right Atrial Pressure 3.0 mmHg Pulmonary Artery Systolic Pressu 7.5 mmHg PV Peak Velocity 106.0 cm/s FINDINGS Left Ventricle Left ventricle is normal in size. All left ventricular thomason are not well-visualized however grossly LV systolic function is normal with EF of 55 to 60%. Grade 1 diastolic dysfunction Right Ventricle Grossly normal Right Atrium Normal in size Left Atrium Normal in size Mitral Valve Structurally normal mitral valve. Trace mitral regurgitation. Aortic Valve Structurally normal aortic valve. No significant stenosis or regurgitation. Tricuspid Valve Insufficient TR jet to evaluate RVSP. Pulmonic Valve Not well-visualized. Pericardium Normal Aorta Normal in size IVC Appears to be normal CONCLUSIONS Grossly LV systolic function appears to be normal with EF 55 to 60%. Regional wall motion abnormalities cannot accurately be assessed because of poor visualization. Grade 1 diastolic dysfunction. Trace mitral regurgitation Compared to prior echocardiogram from 2021, no significant changes are seen Jamari Moon MD (Electronically Signed) Final Date: 15 Jul 2023 13:32 S
--- NOTE | 2023-07-06 08:30 | USCV_ITS ---
Tarun Gautam Age: 67 Gender: M : 1955 Exam Date: 07/06/2023 07:06 Ordering Phys: Abdoul Gtz MD (Andy) [email or web address] [place] Technologist: BM Exam Location: [facility] – [place] Indication: AAA HISTORY: Diameter (cm) AP x Transverse x Length Velocity (cm/s) Waveform Prox Aorta: 2.02 x 2.27 x 58.60 Triphasic Mid Aorta: 1.93 x 1.90 x 48.80 Triphasic Distal Aorta: 3.30 x 2.94 x 4.30 49.90 Triphasic Right Iliac Prox: 1.02 x 1.34 x 87.90 Triphasic Left Iliac Prox: 0.65 x 0.89 x 75.80 Triphasic Stent Prox Landing x x Aneurysmal Sac Max x x Lt Lat Sac Dim Rt Lat Sac Dim Stent Dist Landing x x Right Iliac Stent x x Left Iliac Stent x x Right Renal Art Left Renal Art FINDINGS: CONCLUSIONS Distal AAA measuring 3.3 x 2.9 x 4.3cm AP x Trans x CC Normal proximal common iliac arteries Jamel Lindsey MD (Electronically Signed) Final Date: 06 Jul 2023 17:05 S
--- NOTE | 2023-07-06 09:15 | USCV_ITS ---
Gautam Mcneil Age: 67 Gender: M : 1955 Exam Date: 07/06/2023 07:21 Ordering Phys: Abdoul Gtz MD (Andy) ([email or web address] [place]) Technologist: LAUREEN Exam Location: [facility] [place] Indication: Syncope Risk Factors: Previous Vascular Surgery: Right Brachial BP: / Left Brachial BP: / Right Left Velocity (cm/s) Spectral Plaque Velocity (cm/s) Spectral Plaque Syst/Diast Broadening Syst/Diast Broadening 59.50/ 11.50 Prox CCA 87.10 / 25.60 79.50/ 20.40 Mid CCA 97.60 / 26.20 53.00/ 15.00 Distal CCA 79.70 / 26.10 42.10/ 18.00 Prox ICA 45.80 / 19.70 52.10/ 23.00 Mid ICA 43.30 / 18.50 58.10/ 24.00 Distal ICA 67.60 / 30.90 84.50 ECA 81.70 1.10 ICA/CCA 0.80 Antegrade Vertebral Antegrade 50.40/ 25.10 cm/s 31.90/ 13.10 cm/s Tri Subclavian Tri 57.40 90.50 CONCLUSIONS Intimal thickening in the common carotid arteries and internal carotid arteries bilaterally. Right ICA stenosis <50%. Mild atheromatous plaque right carotid bulb/ICA. Left ICA stenosis <50%. Mild atheromatous plaque left carotid bulb/ICA. Normal antegrade Doppler flow noted in the right vertebral artery. Normal antegrade Doppler flow noted in the left vertebral artery. Jamel Lindsey MD (Electronically Signed) Final Date: 06 Jul 2023 17:01 S
== END 2023-07-06 06:47 | disposition home or self-care (01) ==
LOC: RAD 06:47
PROVIDERS: PCP Family Medicine; Visit Provider Thoracic Surgery (Cardiothoracic Vascular Surgery)
DX: I65.23 Occlusion and stenosis of bilateral carotid arteries (principal); I71.40 Abdominal aortic aneurysm, without rupture, unspecified; R06.02 Shortness of breath; R55 Syncope and collapse
CPT/HCPCS: 93306; 93880; 93978

== ENCOUNTER 2023-07-27 10:08 | Outpatient (CLI) | payer MEDICARE, SELFPAY ==
--- NOTE | 2023-07-27 | ECG_ITS ---
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 Interpretive Statements NAME OF STUDY: LEXISCAN SESTAMIBI STRESS TEST INDICATION: Chest Pain, PROCEDURE: At the baseline, the EKG revealed normal sinus rhythm with some nonspecific ST changes. The baseline heart was 90 bpm with a blood pressue of 154/96 mm of Hg Lexiscan was infused over a period of 20 seconds. A total of 0.4 milligrams of Lexiscan was infused. The stress phase was continued for a total of 5 minutes. Heart rate at the end of the stress phase was 101 bpm with a blood pressure 147/91 mm of Hg. The EKG at the peak infusion revealed no significant changes. Sestamibi was injected 20 seconds after the Lexiscan infusion. Heart rate at the end of the recovery phase was 101 bpm with a blood pressure of 139/90 mm of Hg. CONCLUSION: 1. No significant EKG changes with the LexiScan infusion 2. No LexiScan induced chest pain or cardiac arrhythmia 3. Normal blood pressure and heart rate response 4. Sestamibi/sestamibi perfusion scan pending; see separate report. Electronically Signed On 07-30-2023 22:52:04 CDT by Jeff Vizcaino M.D. [id number]
--- NOTE | 2023-07-27 10:53 | NMCV_ITS ---
NM dottie perf SPECT r/s* [id number] Gautam Mcneil Age: 67 Gender: M : 1955 Exam Date: 07/27/2023 10:53 Ordering Phys: Abdoul Gtz MD (Andy) ([email or web address]) Technologist: MATHEW Marcelo Exam Location: [facility] Indications: CHEST PAIN STRESS TEST [facility] IMAGE PROTOCOL Rest/Stress 1 Lexiscan Day Radiopharmaceutical Dose (mCi) Administration Site Administered by Rest: Tc-99m 11.0 IV MATHEW Garrison Sestamibi Stress:Tc-99m 33.0 IV MATHEW Garrison Sestamibi Rest: 27-Jul-2023 60 Discovery 630 Stress: 27-Jul-2023 30 Discovery 630 0.4mg Lexiscan. Supine position only as patient was unable to lay prone. SPECT RESULTS Technical Quality: Excellent Raw Data Analysis: Normal Image Corrections: No attenuation or motion correction applied Summed Stress Score: 5 Summed Rest Score: 0 Summed Difference Score: 5 PERFUSION FINDINGS Moderate area of slightly decreased tracer uptake involving the basal and mid inferolateral, mid anterolateral, apical lateral and mid inferior segments. Some reversibility was noted in these regions FUNCTIONAL RESULTS (calculated via Gated SPECT) Stress Image LV EF (%): 77 Stress EDV (mL):81 TID: 0.76 Stress ESV (mL):19 FUNCTIONAL FINDINGS: Segmental wall motion analysis revealing no gross wall motion abnormalities IMPRESSIONS 1. Myocardial perfusion imaging revealing moderate area of minimally decreased tracer uptake involving the inferior lateral, anterolateral knee and inferior regions with some reversibility suggestive of mild ischemia in the distribution of the left circumflex artery/right coronary artery.(With the SPECT imaging, the ischemia appears to be very minimal) 2. Normal LV ejection fraction 77%. 3. LV wall motion analysis revealing no gross wall motion abnormalities. 4. Normal LV volume Compared to the previous study from 10/13/2021, the ischemia appears to be new Dr Jeff Vizcaino MD FAC (Electronically Signed) Final Date: 27 Jul 2023 20:17 S
[2023-07-27 11:22] VITALS: BMI 47.7
[2023-07-27] MEDS: regadenoson 0.4 Mg/5 ml Syringe 0.400000000000000022 MG IVP (11:45)
[2023-07-27 12:28] VITALS: BP 139/90; PULSE 102
== END 2023-07-27 10:09 | disposition home or self-care (01) ==
PROVIDERS: PCP Family Medicine; Visit Provider Thoracic Surgery (Cardiothoracic Vascular Surgery)
DX: R07.9 Chest pain, unspecified (principal); R94.39 Abnormal result of other cardiovascular function study
CPT/HCPCS: 36415; 78452; 93017; 96374; A9500; J2785

== ENCOUNTER → 2023-08-07 14:48 | Outpatient (BNVA) | payer MEDICARE, SELFPAY | PROVIDERS: PCP Family Medicine; Visit Provider Family Medicine | DX: E11.9 Type 2 diabetes mellitus without complications (principal); I10 Essential (primary) hypertension | CPT/HCPCS: 80053; 83036; 85025 ==

== ENCOUNTER → 2023-08-15 14:51 | Outpatient (BNVA) | payer MEDICARE, SELFPAY | PROVIDERS: PCP Family Medicine; Visit Provider Internal Medicine Cardiovascular Disease | DX: I25.118 Atherosclerotic heart disease of native coronary artery with other forms of angina pectoris (principal); Z95.1 Presence of aortocoronary bypass graft; I10 Essential (primary) hypertension; E78.5 Hyperlipidemia, unspecified; I71.40 Abdominal aortic aneurysm, without rupture, unspecified; E11.9 Type 2 diabetes mellitus without complications; Z79.85 Long-term (current) use of injectable non-insulin antidiabetic drugs; Z87.891 Personal history of nicotine dependence | CPT/HCPCS: 99214 ==

== ENCOUNTER → 2023-08-31 08:25 | Outpatient (BNVA) | payer MEDICARE, SELFPAY | PROVIDERS: PCP Family Medicine; Visit Provider Specialist | DX: R41.3 Other amnesia (principal); G30.9 Alzheimer's disease, unspecified; F02.80 Dementia in other diseases classified elsewhere, unspecified severity, without behavioral disturbance, psychotic disturbance, mood disturbance, and anxiety; G45.9 Transient cerebral ischemic attack, unspecified | CPT/HCPCS: 99214 ==

== ENCOUNTER 2023-10-09 14:57 | Oncology outpatient (recurring) (ONCR) | payer MEDICARE, SELFPAY ==
[2023-10-09 16:24] LABS: Basophils # 0.1 10^3/uL (0.0-0.1); Basophils % 0.9 %; Eosinophils # 0.2 10^3/uL (0.0-0.8); Eosinophils % 1.7 %; Hematocrit 48.2 % (37-53); Lymphocytes # 3.4 10^3/uL (0.8-4.8); Mean Corpuscular HGB Conc 31.7 g/dL (30-55); Mean Corpuscular Volume 91.5 fl (82-101); Mean Platelet Volume 12.6 fL (7.4-10.4); Monocytes # 0.9 10^3/uL (0.2-0.9); Monocytes % 6.6 %; Neutrophils # 8.95 10^3/uL (1.8-7.7); Neutrophils % 65.4 %; Nucleated Red Blood Cells % 0 %; Platelet Count 235 10^3/cmm (157-399); Red Blood Count 5.27 10^6/uL (3.85-5.65); Red Cell Distribution Width 14.6 % (12.1-15.1); White Blood Count 13.69 10^3/uL (3.29-11.43)
[2023-10-09 16:41] LABS: Alanine Aminotransferase 16 U/L (0-41); Albumin Level 4.3 g/dL (3.5-5.2); Alkaline Phosphatase 74 U/L (40-130); Aspartate Amino Transferase 20 U/L (0-40); Blood Urea Nitrogen 10 mg/dL (8-23); Calcium 9.4 mg/dL (8.5-10.5); Carbon Dioxide 26 mmol/L (22-29); Chloride 101 mmol/L (98-107); Globulin 3.4 g/dL (1.3-4.6); Glomerular Filtration Rate 96.1 mL/min (90-130); Glucose 136 mg/dL (65-115); Osmolality Calculated 289 mOsm/kg (285-295); Sodium 139 mmol/L (136-145); Total Bilirubin 0.6 mg/dL (0.15-1.2); Total Protein 7.7 g/dL (6.6-8.7)
[2023-10-09 16:48] LABS: Anion Gap 15.9 (5-19); Lactate Dehydrogenase 183 U/L (135-225); Potassium 3.9 mmol/L (3.5-5.1)
[2023-10-09 17:30] LABS: LAB Peripheral Smear Sent for Review
[2023-10-12 15:50] LABS: Erythropoietin 10.6 mIU/mL (2.6-18.5)
[2023-10-16 22:05] LABS: JAK2 Exon 12 Mutation NOT DETECTED (NOT DETECTED); Specimen Source blood
== END 2023-11-03 23:55 | disposition home or self-care (01) ==
PROVIDERS: PCP Family Medicine; Visit Provider Internal Medicine Medical Oncology
DX: D72.829 Elevated white blood cell count, unspecified (principal); D75.1 Secondary polycythemia; Z53.9 Procedure and treatment not carried out, unspecified reason
CPT/HCPCS: 36415; 80053; 81270; 81279; 82668; 83615; 85025; 88374; 99204

== ENCOUNTER → 2023-10-25 10:38 | Outpatient (BNVA) | payer MEDICARE, SELFPAY | PROVIDERS: PCP Family Medicine; Visit Provider Specialist | DX: R47.89 Other speech disturbances (principal); Z74.09 Other reduced mobility; R55 Syncope and collapse; R56.9 Unspecified convulsions | CPT/HCPCS: 95816 ==

== ENCOUNTER 2023-10-30 08:30 | Outpatient (RCR) | payer MEDICARE, SELFPAY | END 2023-11-03 18:00 | disposition home or self-care (01) | LOC: MPT 08:30 | PROVIDERS: PCP Family Medicine; Visit Provider Physician Assistant | DX: Z98.890 Other specified postprocedural states (principal) | CPT/HCPCS: 97110; 97161; G0283 ==

== ENCOUNTER 2023-11-04 06:00 | Outpatient (RCR) | payer MEDICARE, SELFPAY | END 2023-12-03 23:59 | disposition home or self-care (01) | LOC: MPT 06:00 | PROVIDERS: PCP Family Medicine; Visit Provider Physician Assistant | DX: Z98.890 Other specified postprocedural states (principal) | CPT/HCPCS: 97110; 97140; G0283 ==

== ENCOUNTER 2023-12-04 06:30 | Outpatient (RCR) | payer MEDICARE, SELFPAY | END 2024-01-03 23:59 | disposition home or self-care (01) | LOC: MPT 06:30 | PROVIDERS: PCP Family Medicine; Visit Provider Physician Assistant | DX: Z98.890 Other specified postprocedural states (principal); R41.3 Other amnesia; G30.9 Alzheimer's disease, unspecified; F02.80 Dementia in other diseases classified elsewhere, unspecified severity, without behavioral disturbance, psychotic disturbance, mood disturbance, and anxiety; G45.9 Transient cerebral ischemic attack, unspecified | CPT/HCPCS: 97110; 97140; 99214 ==

== ENCOUNTER 2024-01-04 06:00 | Outpatient (RCR) | payer MEDICARE, SELFPAY | END 2024-02-02 23:59 | disposition home or self-care (01) | LOC: MPT 06:00 | PROVIDERS: PCP Family Medicine; Visit Provider Physician Assistant | DX: Z98.890 Other specified postprocedural states | CPT/HCPCS: 97110 ==

== ENCOUNTER → 2024-01-22 14:21 | Outpatient (BNVA) | payer MEDICARE, SELFPAY | PROVIDERS: PCP Family Medicine; Visit Provider Family Medicine | DX: E11.9 Type 2 diabetes mellitus without complications (principal); I10 Essential (primary) hypertension; D72.829 Elevated white blood cell count, unspecified; I25.118 Atherosclerotic heart disease of native coronary artery with other forms of angina pectoris; M54.50 Low back pain, unspecified; G89.29 Other chronic pain | CPT/HCPCS: 80053; 83036; 85025 ==

== ENCOUNTER 2024-01-30 13:33 | Oncology outpatient (recurring) (ONCR) | payer MEDICARE, SELFPAY | END 2024-02-02 23:59 | disposition home or self-care (01) | LOC: ONCMED 13:34 | PROVIDERS: PCP Family Medicine; Visit Provider Internal Medicine | DX: D72.829 Elevated white blood cell count, unspecified (principal); D75.1 Secondary polycythemia | CPT/HCPCS: 99214 ==

== ENCOUNTER → 2024-02-18 14:54 | Outpatient (BNVA) | payer MEDICARE, SELFPAY | PROVIDERS: PCP Family Medicine; Visit Provider Internal Medicine Cardiovascular Disease | DX: I25.10 Atherosclerotic heart disease of native coronary artery without angina pectoris (principal); I10 Essential (primary) hypertension; E78.5 Hyperlipidemia, unspecified; I71.40 Abdominal aortic aneurysm, without rupture, unspecified; E11.9 Type 2 diabetes mellitus without complications; Z79.85 Long-term (current) use of injectable non-insulin antidiabetic drugs; Z87.891 Personal history of nicotine dependence | CPT/HCPCS: 99214 ==